=== PATIENT | male | born 1935 | race Caucasian/White ===

== ENCOUNTER → 2022-08-13 | Outpatient (CLI) | payer MEDICARE, SELFPAY ==
--- NOTE | 2022-08-12 22:33 | HP.PCM_ITS ---
History and Physical Date of Admission: 08/13/22 HISTORY OF PRESENT ILLNESS 86 year old man presents with a painful nonhealing ulcer superior helical rim right ear.? He first noticed it several months ago, and it has increased in size and has become more painful.? He denies any bleeding or drainage.? He denies any trauma.? He denies fever.? He has had skin cancers removed in the past on his left nasal tip. The area needed radiation therapy afterward.? He presents at this time for further evaluation and treatment. 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 Former smoker alcohol intake:? never substance use type:? does not use REVIEW OF SYMPTOMS General - Denies fever, fatigue, and weight loss. Eyes - Denies cataracts and glaucoma. ENT - Denies nasal congestion and sore throat. Endocrine - Denies excessive thirst and urination. Skin - Had a basal cell skin cancer excised from his left nasal tip several years ago and needed radiation therapy.? Has a painful enlarging nonhealing u lcer superior helical rim right ear. Musculoskeletal - Denies joint pain, joint stiffness, weakness of muscles and joints, back pain, and arthritis. Neuro - Denies headaches. Cardiovascular - Denies chest pain, fatigue, and shortness of breath with exertion. Psych - Denies anxiety and depression. Respiratory - Denies chronic cough and shortness of breath. ? Patient is a former smoker. Gastrointestinal - Denies nausea, vomiting, diarrhea, and constipation. Hematologic - Denies abnormal bruising and bleeding. Genitourinary - Denies hematuria and urinary frequency. PHYSICAL EXAMINATION General - Alert and Oriented. HEENT - PERRL. EOMI.? Throat is clear.? On the superior helical rim right ear is a large ulceration involving underlying cartilage.? Measures 2.2 x 1.5 cm.? Some tenderness to palpation.? No evidence of infection at this time.? No redness, no fluctuance, no purulent drainage.? On his left nasal alar rim is a notching from previous excision of a basal cell carcinoma.? Also had radiation therapy.? No other suspicious lesions noted. Neck - Supple and nontender.? No cervical adenopathy.? No suspicious lesions noted. Lungs - Clear to auscultation. Heart - Regular rate and rhythm. Abdomen - Soft and nondistended. Extremities - FROM. No axillary adenopathy.? Radial pulses are palpable.? No suspicious lesions noted. Neuro - CN II-XII grossly intact. Psych - Normal mood and affect. ASSESSMENT 1.? 2.2 cm painful nonhealing ulcer superior helical rim right ear, clinically squamous cell carcinoma. 2.? Personal history of skin cancer. 3.? History of radiation therapy. 4.? Former smoker. PLAN Patient has an enlarging painful nonhealing ulcer involving underlying cartilage superior helical rim right ear.? With that degree of erosion into the underlying cartilage, clinically it's a squamous cell carcinoma. First order of business is to establish a diagnosis, so I recommend operative intervention with an excision of this ulceration and send it to Pathology for analysis to rule out carcinoma.? I try to give Pathology a full thickness excision since it makes it easier to make the diagnosis of invasive carcinoma.? If carcinoma is present, as I suspect, then further excision will be done with a margin which will essentially partially amputate a little less than the top half of the ear. ? After healing has occurred, can discuss complex ear reconstruction if the patient is interested. It is a multi procedure commitment.? If he is interested later on, will also discuss with him that the notching in his left nasal alar rim can be addressed as well with complex nasal reconstruction which is also a multi procedure commitment as well. For monitoring, he will need TBSE every 6 months, and he will come to see me for these examinations. Patient was informed of the risks and complications of the procedure including alternatives to surgery.? These were discussed with the patient personally.? Patient voices understanding and wishes to proceed. Some of the risks and complications were included in a form from the [employer]. Potential risks and complications included but not inclusive of bleeding, infection, hematoma, bruising, swelling, prolonged need for drains, loss of sensation to skin, partial or complete loss of skin flap and/or nipple graft, wound breakdown, need for wound care, poor scarring, poor aesthetic outcome, intra operative cardiac or neurologic events, DVT, PE, and reaction to anesthesia. Surgery will be done under general anesthesia with a surgical observation overnight stay in the hospital. 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
--- NOTE | 2022-08-13 08:30 | EKG12_ITS ---
Test Reason : PREOP Blood Pressure : / mmHG Vent. Rate : 064 BPM Atrial Rate : 256 BPM P-R Int : 000 ms QRS Dur : 100 ms QT Int : 408 ms P-R-T Axes : 259 -33 -42 degrees QTc Int : 420 ms Atrial flutter Left axis deviation Septal infarct , age undetermined Abnormal ECG No previous ECGs available Confirmed by MICHELET GALLARDO, CALLI ([id number]), market editor JAIME HIGGINS ([id number]) on 08/17/2022 10:23:40 AM Referred By: Landry Medina Confirmed By:CALLI TAFOYA MD
[2022-08-13 09:15] VITALS: BP 140/62; PULSE 63; RESP 16; TEMP 36.3; O2SAT 97; BMI 21.6
[2022-08-13 09:52] LABS: Hematocrit 42.7 % (40-54); Mean Corp Hgb Conc 32.8 g/dL (32-36); Mean Corpuscular Hgb 34.9 pg (27.0-32.0); Mean Corpuscular Volume 106.5 fL (80-94); Mean Platelet Vol. 9.4 fl (6.2-12.0); Platelet Count 318 K/mm3 (150-450); RBC Distribution Width CV 13.4 % (11.6-14.6); RBC Distribution Width SD 52.9 fl (35.1-43.9); Red Blood Count 4.01 M/mm3 (4.6-6.2); White Blood Count 11.1 K/mm3 (4.4-11.0)
[2022-08-13 10:16] LABS: AST(SGOT) 20 U/L (15-37); Alanine Aminotransfer ALT/SGPT 18 U/L (16-61); Albumin, Serum 3.3 g/dL (3.2-5.0); Alkaline Phosphatase 155 U/L (45-117); Anion Gap 5 (5-15); BUN 13 mg/dL (7-18); BUN/Creat Ratio 14.2 RATIO (10-20); Bilirubin, Direct 0.19 mg/dL (0.00-0.30); Calcium,Total 9.5 mg/dL (8.5-10.1); Chloride 100 mmol/L (98-107); Creatinine, Serum 0.92 mg/dL (0.70-1.30); EST Glomerular Filtration Rate 83 mL/min (>60); Est Glom Filt Rate - Afr Amer 100 mL/min (>60); Estimated Creatinine Clearance 48.57 ml/min; Globulin 3.9 g/dL (2.2-4.2); Glucose 95 mg/dL (74-106); Potassium 4.6 mmol/L (3.5-5.1); Protein, Total 7.2 g/dL (6.4-8.2); Sodium Level 136 mmol/L (136-145); Thyroid Stim Hormone (TSH) 4.97 uIU/mL (0.358-3.74)
[2022-08-13 10:39] LABS: International Normalized Ratio 1.1; Prothrombin Time (Protime)PT. 14.5 SECONDS (11.7-14.9)
[2022-08-13 10:49] LABS: Partial Thromboplast Time 43.1 Seconds (24.1-36.2)
== END | disposition home or self-care (01) ==
LOC: AC 10:33 → PAT 09-09 16:53
PROVIDERS: Anesthesiology; PCP Family Medicine; Referring Provider Surgery; Visit Provider Surgery
DX: Z01.812 Encounter for preprocedural laboratory examination (principal); C44.222 Squamous cell carcinoma of skin of right ear and external auricular canal; Z53.9 Procedure and treatment not carried out, unspecified reason; Z92.3 Personal history of irradiation; Z79.82 Long term (current) use of aspirin; Z79.899 Other long term (current) drug therapy; Z87.891 Personal history of nicotine dependence
CPT/HCPCS: 80048; 80076; 84443; 85027; 85610; 85730; 93005; J7120; J2405

== ENCOUNTER → 2022-09-01 | Outpatient (CLI) | payer MEDICARE, SELFPAY ==
--- NOTE | 2022-09-01 08:06 | ECHOD_ITS ---
Reason For Study: PRE-OP Procedure This was a 2D Doppler, Color Flow transthoracic echocardiogram. Exam performed in department. Left Ventricle Normal LV size. Left ventricular systolic function is normal. The estimated ejection fraction is 65 %. No regional wall motion abnormalities noted. Right Ventricle Normal RV size. Normal systolic function. Atria Normal left atrium. Normal right atrium. Mitral Valve Normal mitral valve. Tricuspid Valve Normal tricuspid valve. Mild (1+) tricuspid valve insufficiency. Pulmonary artery systolic pressure is 39 mmHg. Aortic Valve Trisinus/trileaflet aortic valve. Mild focal aortic valve calcification. Pulmonic Valve Normal pulmonic valve. Great Vessels Normal aortic root. The pulmonary artery is normal size. Normal inferior vena cava. Pericardium/Pleural No pericardial effusion. MMode/2D Measurements & Calculations LVIDd: 4.3 cm IVSd: 1.1 cm LVOT diam: 2.0 cm LVIDs: 3.0 cm LVPWd: 1.1 cm LVOT area: 3.3 cm2 RVDd: 3.3 cm FS: 30.0 % Ao root diam: 3.0 cm LAV(MOD-bp): 56.5 ml LVAd ap4: 16.6 cm2 LAV(MOD-bp) Indexed: 33.4 ml/m2 LVLd ap4: 6.2 cm LAV(MOD-sp2): 59.0 ml EDV(MOD-sp4): 37.6 ml LAV(MOD-sp4): 53.4 ml EDV(sp4-el): 37.8 ml LVAs ap4: 10.2 cm2 LVLs ap4: 5.3 cm ESV(MOD-sp4): 17.4 ml ESV(sp4-el): 16.5 ml EF(MOD-sp4): 53.6 % EF(sp4-el): 56.4 % LVAd ap2: 17.0 cm2 SV(MOD-sp4): 20.2 ml SV(MOD-sp2): 23.6 ml LVLd ap2: 6.3 cm EDV(MOD-sp2): 39.1 ml EDV(sp2-el): 39.2 ml LVAs ap2: 9.9 cm2 LVLs ap2: 5.5 cm ESV(MOD-sp2): 15.6 ml ESV(sp2-el): 15.2 ml EF(MOD-sp2): 60.2 % SV(sp4-el): 21.3 ml LA dimension(2D): 3.9 cm LA A4 area: 20.0 cm2 RA A4 area: 17.5 cm2 Time Measurements MV dec time: 0.16 sec Doppler Measurements & Calculations MV E max adrian: 117.7 cm/sec Lat Peak E' Adrian: 8.8 cm/sec Med Peak E' Adrian: 7.8 cm/sec MV A max adrian: 60.5 cm/sec E/E' lat: 13.3 E/E' med: 15.1 MV E/A: 1.9 Ao V2 max: 139.1 cm/sec LV V1 max: 91.7 cm/sec MV dec slope: 816.0 cm/sec2 Ao max P.7 mmHg LV V1 max P.4 mmHg QUENTIN(V,D): 2.2 cm2 PA V2 max: 110.3 cm/sec TR max adrian: 289.6 cm/sec PA max PG (full): 1.9 mmHg TR max P.5 mmHg ECHO/Echo Complete Interpretation Summary Normal LV size. Left ventricular systolic function is normal. The estimated ejection fraction is 65 %. Pulmonary artery systolic pressure is 39 mmHg. Mild (1+) tricuspid valve insufficiency. Ordering Physician: Nixon Urias Referring Physician: More Salazar Performed By: Marcelina Raya RDCS
--- NOTE | 2022-09-01 17:37 | STRESSREP_ITS ---
Stress Test Report Pharmacologic myocardial perfusion stress test. 86-year-old man with a history of atrial fibrillation for preop evaluation Resting EKG demonstrates atrial fibrillation flutter with a rate of 73 bpm. Resting blood pressure is 122/70 mmHg. 0.4 mg of regadenoson was infused per usual protocol followed by rapid intravenous saline flush injection. Continuous EKG monitoring was performed. The maximum heart rate was 116 bpm which was 87% of max impacted heart rate the maximum workload was 1 metabolic equivalent. At rest there were no ST or T wave changes noted to suggest ischemia and at peak infusion nonspecific ST changes were noted which did not meet the criteria for ischemia. No clinical angina is noted. The final blood pressure was 128/70 mmHg. Myocardial perfusion protocol. 11.6 mCi of technetium 99m sestamibi was injected at rest. 0.4 mg of regadenoson was infused per usual protocol. At peak infusion 33.7 mCi of techn etium 99m sestamibi was injected stress images were obtained stress and rest images were reconstructed and compared in the short axis vertical long and horizontal long axis. Gated images were also obtained. Perfusion SPECT analysis: Review of the stress images demonstrate normal uptake of tracer noted in all areas of the myocardium. The resting images similar demonstrated normal uptake of tracer noted in all areas of the myocardium. No areas of reversibility are noted to suggest ischemia and no previous infarct is noted. Gated SPECT analysis: The gated ejection fraction is 75% plus. Conclusion: Normal pharmacologic myocardial perfusion stress test. Preserved ejection fraction. Atrial fibrillation/flutter noted
== END | disposition home or self-care (01) ==
PROVIDERS: PCP Family Medicine; Referring Provider Internal Medicine Cardiovascular Disease; Visit Provider Internal Medicine Cardiovascular Disease
DX: Z01.810 Encounter for preprocedural cardiovascular examination (principal); I25.10 Atherosclerotic heart disease of native coronary artery without angina pectoris; Z95.1 Presence of aortocoronary bypass graft
CPT/HCPCS: 78452; 93017; 93306; A9500; A4216; J2785

== ENCOUNTER 2022-09-20 13:35 | Observation (INO) | payer MEDICARE, SELFPAY ==
[2022-09-20] VITALS (11 sets, daily range): BP systolic 110–159; BP diastolic 50–79; PULSE 60–76; RESP 16–18; TEMP 35.8–36.7; O2SAT 93–100; BMI 21.6; BMI 21.5
--- NOTE | 2022-09-20 | LES_PTH ---
PATIENT: GABRIEL LUCAS LOC: MS3 U#:[id number] AGE/SX: 86/M ROOM: AL314 RE09/20/[address]: Dr. Landry Medina MD : 1935 BED: 1 DIS: 09/22/2022 SPEC #: [id number] RECD: 09/20/22 10:48 STATUS: PEDRO ROCKY #: [id number] JUANI: 09/20/22 00:[address]: Landry Medina DEPT: SURGICAL PATHOLOGY RECD BY: Varsha Rockwell ENTERED: 09/20/22 11:35 SP TYPE: Lesion OTHR DR: Dr. More Salazar, DO Tissues: A - Skin of external ear, NOS B - Skin of external ear, NOS Procedures: Frozen Section (charge) Surgery Specimen Level IV HEADER OPERATION: Radical excision 2.2 cm painful ulcerated invasive squamous cell carcinoma PRE-OP DIAGNOSIS: 2.2 cm painful nonhealing ulcer superior helical rim; history of skin cancer TISSUE SUBMITTED: A ? Right ear superior helical rim lesion, frozen section, B ? Squamous cell carcinoma, right ear superior helical rim, suture at 12 o?clock FROZEN SECTION DIAGNOSIS A. Right superior ear lesion, biopsy: Invasive squamous cell carcinoma. Squamous cell carcinoma in situ. AM: 09/20/2022 MICROSCOPIC DIAGNOSIS A. Right ear superior helical rim lesion, excision: Invasive well to moderately differentiated squamous cell carcinoma. See comment. B. Right ear superior helical rim lesion, re-excision: Invasive well to moderately differentiated squamous cell carcinoma, completely excised. Basal cell carcinoma focally extending to the 6 o?clock margin of excision. Extensive solar elastosis. Cartilage with no significant pathologic change. See comment. AM:apple 09/21/2022 COMMENT A & B. Immunohistochemistry ([id number]) supports the above diagnosis. B. Yellow ink does not represent a true margin and represents recent (part A) biopsy region. MICROSCOPIC DESCRIPTION Slides are reviewed. GROSS DESCRIPTION A - Received fresh for frozen section consultation labeled with the patient's name is a specimen designated right ear lesion. The specimen consists of a single irregular fragment of pink-red soft tissue measuring 3.0 x 0.5 x 0.3 cm and containing small fragments of unremarkable skin. The specimen is submitted in its entirety for frozen section consultation in one block. / AM:apple 09/20/2022 B - Received in fixative is one container labeled with the patient's name and designated squamous cell carcinoma right ear. The specimen consists of a circular fragment of pink-galvez skin with attached red-galvez soft tissue. The specimen measures 4.5 cm in diameter and 0.7 cm in thickness. A suture is present along one edge signifying the 12 o?clock position. Attached to the underside of the soft tissue at the 3 o?clock and 10-12 o?clock position are fragments of unremarkable cartilage. The specimen is differentially inked as follows: 12 o?clock ? black, 3 o?clock ? green, 6 o?clock ? blue, 9 o'clock ? red. The inner rim is inked in yellow ink. The specimen is radially sectioned and totally submitted in four cassettes. / AM:apple 09/20/2022 TC:0 CPT: 38513 x2, 66708
--- NOTE | 2022-09-20 | IMM_PTH ---
PATIENT: GABRIEL LUCAS LOC: MS3 U#:[id number] AGE/SX: 86/M ROOM: [facility]314 RE09/20/[address]: Dr. Landry Medina MD : 1935 BED: 1 DIS: 09/22/2022 SPEC #: [id number] RECD: 09/21/22 11:06 STATUS: PEDRO REQ #: [id number] JUANI: 09/20/22 00:[address]: Landry Medina DEPT: IMMUNOHISTOCHEMISTRY RECD BY: Varsha Rockwell ENTERED: 09/21/22 11:08 SP TYPE: IMMUNO OTHR DR: DO Dr. More Arango DO Tissues: A - Skin of external ear, NOS B - Skin of external ear, NOS Procedures: BCL-2 (add) CK5-6 (add) P40 (add) CD10 (initial) PHYSICIAN & INSTITUTION [place] [id number] SPECIMEN INFORMATION: Tissue Source: A - Right ear superior helical rim lesion, B - Right ear superior helical rim lesion Clinical Info: Painful nonhealing ulcer superior helical rim; history of skin cancer Specimen Number: [id number] A & B3 CPT code: 45264 x2, 87984 x6 METHODOLOGY: Deparaffinized sections of prefer/formalin-fixed tissue or PAP/DQ stained slides are incubated with monoclonal/polyclonal antibodies/oligonucleotide probes. Localization is made via biotin free immunoperoxidase method. Appropriate controls are performed and reacted as expected. Results on target cell population are indicated in the following table: RESULTS: ANTIBODY / CLONE RESULT Block A P40 (BC28) positive CD10 (56C6) negative BCL-2 (bcl-2/100/D5) negative CK5-6 (D5 & 1684) positive Block B3 P40 (BC28) positive CD10 (56C6) positive BCL-2 (bcl-2/100/D5) positive CK5-6 (D5 & 1684) positive These tests were developed and their performance characteristics determined by [facility]. They may not have been cleared or approved by the U.S. Food and Drug Administration. The FDA has determined that such clearance or approval is not necessary. The above immunohistochemical/dualISH markers are ordered and reviewed by the Pathologist. INTERPRETATION: A. Right ear superior helical rim lesion, excision: Invasive squamous cell carcinoma. B. Right ear superior helical rim lesion, re-excision: Invasive squamous cell carcinoma. Basal cell carcinoma. AM:apple 09/22/2022
[2022-09-20] MEDS: Lactated Ringers 1,000 ML 15 ML IV ×2 (08:42→13:43)
[2022-09-20] MEDS: BACITRACIN/POLYMYXIN B 15 GM Tube 1 APPLIC (09:43)
--- NOTE | 2022-09-20 09:52 | HP.PCM_ITS ---
History and Physical Date of Admission: 09/20/22 HISTORY OF PRESENT ILLNESS 86 year old man presents with a painful nonhealing ulcer superior helical rim right ear.? He first noticed it several months ago, and it has increased in size and has become more painful.? He denies any bleeding or drainage.? He denies any trauma.? He denies fever.? He has had skin cancers removed in the past on his left nasal tip. The area needed radiation therapy afterward.? He presents at this time for further evaluation and treatment. 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 Former smoker alcohol intake:? never substance use type:? does not use REVIEW OF SYMPTOMS General - Denies fever, fatigue, and weight loss. Eyes - Denies cataracts and glaucoma. ENT - Denies nasal congestion and sore throat. Endocrine - Denies excessive thirst and urination. Skin - Had a basal cell skin cancer excised from his left nasal tip several years ago and needed radiation therapy.? Has a painful enlarging nonhealing ulcer superior helical rim right ear. Musculoskeletal - Denies joint pain, joint stiffness, weakness of muscles and joints, back pain, and arthritis. Neuro - Denies headaches. Cardiovascular - Denies chest pain, fatigue, and shortness of breath with exertion. Psych - Denies anxiety and depression. Respiratory - Denies chronic cough and shortness of breath. ? Patient is a former smoker. Gastrointestinal - Denies nausea, vomiting, diarrhea, and constipation. Hematologic - Denies abnormal bruising and bleeding. Genitourinary - Denies hematuria and urinary frequency. PHYSICAL EXAMINATION General - Alert and Oriented. HEENT - PERRL. EOMI.? Throat is clear.? On the superior helical rim right ear is a large ulceration involving underlying cartilage.? Measures 2.2 x 1.5 cm.? Some tenderness to palpation.? No evidence of infection at this time.? No redness, no fluctuance, no purulent drainage.? On his left nasal alar rim is a notching from previous excision of a basal cell carcinoma.? Also had radiation therapy.? No other suspicious lesions noted. Neck - Supple and nontender.? No cervical adenopathy.? No suspicious lesions noted. Lungs - Clear to auscultation. Heart - Regular rate and rhythm. Abdomen - Soft and nondistended. Extremities - FROM. No axillary adenopathy.? Radial pulses are palpable.? No suspicious lesions noted. Neuro - CN II-XII grossly intact. Psych - Normal mood and affect. ASSESSMENT? 1.? 2.2 cm painful nonhealing ulcer superior helical rim right ear, clinically squamous cell carcinoma. 2.? Personal history of skin cancer. 3.? History of radiation therapy. 4.? Former smoker. PLAN Patient has an enlarging painful nonhealing ulcer involving underlying cartilage superior helical rim right ear.? With that degree of erosion into the underlying cartilage, clinically it's a squamous cell carcinoma. First order of business is to establish a diagnosis, so I recommend operative intervention with an excision of this ulceration and send it to Pathology for analysis to rule out carcinoma.? I try to give Pathology a full thickness excision since it makes it easier to make the diagnosis of invasive carcinoma.? If carcinoma is present, as I suspect, then further excision will be done with a margin which will essentially partially amputate a little less than the top half of the ear. ? After healing has occurred, can discuss complex ear reconstruction if the patient is interested. It is a multi procedure commitment.? If he is interested later on, will also discuss with him that the notching in his left nasal alar rim can be addressed as well with complex nasal reconstruction which is also a multi procedure commitment as well. For monitoring, he will need TBSE every 6 months, and he will come to see me for these examinations. Patient was informed of the risks and complications of the procedure including alternatives to surgery.? These were discussed with the patient personally.? Patient voices understanding and wishes to proceed. Some of the risks and complications were included in a form from the [employer]. Potential risks and complications included but not inclusive of bleeding, infection, hematoma, bruising, swelling, prolonged need for drains, loss of sensation to skin, partial or complete loss of skin flap and/or nipple graft, wound breakdown, need for wound care, poor scarring, poor aesthetic outcome, intra operative cardiac or neurologic events, DVT, PE, and reaction to anesthesia. Surgery will be done under general anesthesia with a surgical observation overnight stay in the hospital.
[2022-09-20] MEDS: Clindamycin 900 MG/50 ML BAG 75 MG IV (10:15)
[2022-09-20] MEDS: Lidocaine 1% /Epi 1:100 (20ml) 20 ML Vial (10:40)
--- NOTE | 2022-09-20 12:21 | OP.PCM_ITS ---
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 2.2 cm painful nonhealing ulcer superior helical rim right ear, clinically squamous cell carcinoma. 2. Personal history of skin cancer. 3. History of radiation therapy. 4. Former smoker. Post-Operative Diagnosis: 1. 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 2. Personal history of skin cancer. 3. History of radiation therapy. 4. Former smoker. 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 Description of Surgical Findings:: 86 year old man presents with a painful nonhealing ulcer superior helical rim right ear.? He first noticed it several months ago, and it has increased in size and has become more painful.? The ulceration had extended onto the posterior ear. He denies any bleeding or drainage.? He denies any trauma.? He denies fever.? He has had skin cancers removed in the past on his left nasal tip. The area needed radiation therapy afterward.? Patient was informed of the risks and complications of the procedure including alternatives to surgery. These were discussed with the patient personally. Patient voices understanding and wishes to proceed. Some of the risks and complications were included in a form from the [employer]. Potential risks and complications included but not inclusive of bleeding, infection, seroma, hematoma, bruising, swelling, loss of sensation to skin, partial or complete loss of skin flap, wound breakdown, need for wound care, poor scarring, poor aesthetic outcome, intra operative cardiac or neurologic events, DVT, PE, and reaction to anesthesia. Frozen section ulcerated lesion superior helical rim right ear involving underlying cartilage and with extension onto posterior ear - invasive squamous cell carcinoma. Surgeon: Landry Medina MD property investor: Giorgi Fields RNFA Type of Anesthesia: General Anesthesiologist: Andre Rehman MD and Carolina Olmstead CRNA Specimen's removed: 1. Ulcerated lesion superior helical rim right ear involving underlying cartilage and with extension onto posterior ear to Pathology as a frozen section. 2. 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 Drains: None. Estimated Blood Loss (mL): 25. Description of Procedure: Patient was taken to OR in supine position and was placed under general anesthesia. The right ear, including preauricular and postauricular, and right neck areas were prepped and draped in the usual fashion. SCD's were placed for DVT prophylaxis. Perioperative antibiotics were given intravenously. Using xylocaine with epinephrine, the right ear was infiltrated with a regional auric ular block. After waiting 5 minutes for the anesthetic to take effect, I excised a portion of the ulcerated lesion on the anterior surface of the ear and sent it to Pathology as a frozen section for analysis to rule out carcinoma. Frozen section was an invasive squamous cell carcinoma. The carcinoma involved underlying cartilage. Therefore radical excision of this ulcerated invasive squamous cell carcinoma with a 1 cm margin in all directions. A large area of the superoposterior ear was ulcerated as well. The radical excision included a lot of cartilage as well. The excision of cartilage was done to make it easier to close a portion of the right ear wound defect, mostly the superior helical rim portion. A suture was marked at the 12 oclock position for pathology orientation. The lesion was sent to pathology to rule out carcinoma at the margins. 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 A complex closure was then done on the superior helical rim portion of the wound defect which was made easier by excision of additional cartilage. Closure was obtained with 5-0 Monocryl interrupted and vertical mattress interrupted sutures. The partial complex closure measured 3 cm. Some of the anterior ear skin was excised with the squamous cell carcinoma as well. Closure was done with 5-0 Monocryl interrupted and vertical mattress interrupted sutures. This left a posterior ear defect. Closing the anterior ear to the postauricular area would have been too much tension on the suture line which would increase the risk of wound healing problems postoperatively. So I designed a superior postauricular skin flap to close the posterior ear defect which measured 4 x 1 cm. Markings were made for the superior postauricular skin flap down to the scalp hair line. The size of the postauricular skin flap was 4 x 2 cm. The postauricular skin flap was elevated down to the level of fascia. It was easily advanced into the posterior ear defect. The flap wound was approximated with the posterior ear defect with 5-0 Monocryl interrupted sutures for the deep dermis and subcutaneous tissue. The skin was approximated with 5-0 Prolene simple interrupted and vertical mattress interrupted sutures. skin The size of the wound and the size of the flap needed to close the defect was 12 cm2. Antibiotic ointment was applied to the suture lines followed by 4x4 gauze and Kerlix gauze for a compression dressing and secured with an megan wrap. Patient tolerated the procedure well and was sent to PACU in satisfactory condition. Patient will be sent upstairs for continued postop care. He will keep his head elevated during the initial postoperative period. He can be discharged when medically stable. He will followup in the office in a week for a wound check and for discussion of the Pathology report. Grafts/Implants Used: None. Procedure Start Time: 10:39 Procedure Stop Time: 12:43 Complications None. Admit VTE Documentation VTE Present on Admission: No VTE Mechan Device Prophylaxis: SCD's VTE Pharm Prophylaxis ordered?: Yes Addendum Addendum: Surgery Charges CPT - 98016 ICD-10 - C44.222, L98.499, H92.01, Z85.828, Z92.3, Z87.891 27098 C44.222, L98.499, H92.01, Z85.828, Z92.3, Z87.891 84452 C44.222, L98.499, H92.01, Z85.828, Z92.3, Z87.891
[2022-09-20] MEDS: Clindamycin in 0.9% Sod Chlor 600 MG/50 ML BAG 100 MG IV ×2 (15:42→21:07)
[2022-09-20] MEDS: Lactated Ringers 1,000 ML 60 ML IV (16:50)
[2022-09-20] MEDS: Juven (unflavored) Packet 1 PACKET PO (17:04)
--- NOTE | 2022-09-20 18:00 | PCM.PN.HOSP ---
Reason for Visit Reason for Visit: Nonhealing right ear ulcer Subjective Subjective Mr. Mejia is an 86-year-old white male who was admitted by Dr. Medina from plastic surgery after surgical intervention for what sounds like a squamous cell carcinoma. He had a painful nonhealing ulcer of the superior helical rim of the right ear that was first noted several months ago. It had increased in size and had become more painful. He evidently has had previous skin cancers removed and did require radiation for this. He was taken to the OR this morning for a 2.2 painful nonhealing ulcer of the superior helical right rim was removed via surgical excision with complete closure and a right superior postauricular advancement skin flap was performed. He has a past medical history of atrial flutter, CAD status post CABG, hypertension, hyperlipidemia, hypothyroidism, and tobacco abuse. We have been consulted postoperatively for medical management. States he is currently feeling well. Has some pain above his eye but this has resolved since they rewrapped his head and loosen the bandage and gave him some Tylenol. Has no complaints at this time Objective Data Objective Data Vital Signs: Vital Signs Temp Pulse Resp BP Pulse Ox O2 Del Method O2 Flow Rate 98.0 F 63 16 113/51 L 96 Room Air 1 09/20/22 16:31 09/20/22 16:31 09/20/22 16:31 09/20/22 16:31 09/20/22 16:31 09/20/22 16:31 09/20/22 14:28 Oxygen Flow Rate (L/min) 1 Oxygen Delivery Method Room Air Weight: 60.9 kg Body Mass Index (BMI) 21.5 Intake & Output: Intake and Output for Last 24 Hours 09/18/22 09/19/22 09/20/22 23:59 23:59 23:59 Intake Total 1100 / 1100 Output Total 0 / 0 Balance 1100 / 1100 Physical Exam Const alert, oriented x3, no apparent distress and average body habitus Constitutional Narrative: Elderly, white male, sitting up in bed, appears comfortable nontoxic HEENT HEENT Narrative: Postoperative dressing in place with Bryn bandage holding everything together Resp normal respiratory effort, no retractions, no use of accessory muscles and clear to auscultation bilaterally Auscultation: Negative for rales, rhonchi or wheezes Cardio regular rate, regular rhythm, S1 normal heart sound, S2 normal heart sound, no murmurs, no rub and no gallops GI normal to inspection, nondistended, normoactive bowel sounds, soft to palpation and non-tender Extremity no clubbing, cyanosis or edema Extremity Narrative: Pedal pulse are 2+ Neuro oriented x3, moves all extremities and no focal motor deficits Speech: speech normal Psych affect normal Psych Narrative: Extremely pleasant Assessment & Plan Assessment/Plan (1) Lesion of right external ear: PLAN: Plan Nonhealing squamous cell carcinoma of the left ear -Postop day 0 2.2 painful nonhealing ulcer of the superior helical right rim was removed via surgical excision with complete closure and a right superior postauricular advancement skin flap -Management per primary service -Anticipate discharge soon as long as medically stable CAD/HTN/HPL -Was cleared preoperatively by cardiology -Preop stress test was unremarkable -Preop echocardiogram showed an EF of 65% with pulmonary systolic pressure of 39 mmHg and 1+ tricuspid valve insufficiency with normal LV function -Continue amlodipine 5 mg daily -Continue metoprolol 25 mg p.o. twice daily -Continue aspirin 81 mg daily -Patient is not on a statin baseline--> we will leave to cardiology follow-up as outpatient Paroxysmal atrial flutter -Cardiology following -Probable initiation of anticoagulation following surgical intervention -We will have patient follow-up after discharge with cardiology to discuss further -Continue metoprolol -Heart rates are controlled with current rate of 63 Hypothyroidism -Continue home levothyroxine History of tobacco abuse -As needed nebulizers -No current issues - patient on room air DVT prophylaxis -Per primary service CODE STATUS -Full code Charges/Coding Visit Charges Inpatient E&M: 87409 Subs Hosp L2
[2022-09-20] MEDS: Docusate Sodium 100 MG Capsule PO (21:07)
[2022-09-20] MEDS: Metoprolol Tartrate 25 MG Tablet PO (21:09)
[2022-09-21 03:00] VITALS: BP 118/56; PULSE 74; RESP 16; TEMP 36.6; O2SAT 92; BMI 21.6
[2022-09-21] MEDS: Lactated Ringers 1,000 ML 60 ML IV (05:13)
[2022-09-21] MEDS: Levothyroxine 50 MCG Tablet PO (05:14)
[2022-09-21] MEDS: Clindamycin in 0.9% Sod Chlor 600 MG/50 ML BAG 100 MG IV ×3 (05:14→21:15)
[2022-09-21 05:17] LABS: Hematocrit 34.6 % (40-54); Hemoglobin 11.7 g/dL (13.0-16.5); Mean Corp Hgb Conc 33.8 g/dL (32-36); Mean Corpuscular Hgb 34.6 pg (27.0-32.0); Mean Corpuscular Volume 102.4 fL (80-94); Mean Platelet Vol. 10.1 fl (6.2-12.0); Platelet Count 239 K/mm3 (150-450); RBC Distribution Width SD 56.4 fl (35.1-43.9); Red Blood Count 3.38 M/mm3 (4.6-6.2); White Blood Count 10.6 K/mm3 (4.4-11.0)
[2022-09-21 05:30] VITALS: BMI 21.6
[2022-09-21 06:13] LABS: Anion Gap 4 (5-15); BUN 24 mg/dL (7-18); BUN/Creat Ratio 21.4 RATIO (10-20); Calcium,Total 9.1 mg/dL (8.5-10.1); Chloride 100 mmol/L (98-107); Creatinine, Serum 1.12 mg/dL (0.70-1.30); EST Glomerular Filtration Rate 66 mL/min (>60); Est Glom Filt Rate - Afr Amer 80 mL/min (>60); Estimated Creatinine Clearance 40.03 ml/min; Glucose 166 mg/dL (74-106); Potassium 5.3 mmol/L (3.5-5.1); Sodium Level 133 mmol/L (136-145)
--- NOTE | 2022-09-21 08:42 | WOUNDNOTE ---
wound photo: right ear
[2022-09-21 08:47] VITALS: PULSE 70
[2022-09-21] MEDS: Metoprolol Tartrate 25 MG Tablet PO ×2 (08:47→21:15)
[2022-09-21] MEDS: amLODIPine 5 MG Tablet PO (08:47)
[2022-09-21] MEDS: Docusate Sodium 100 MG Capsule PO ×2 (08:47→21:14)
[2022-09-21] MEDS: Enoxaparin 40 MG/0.4 ML Syringe SC (08:47)
[2022-09-21] MEDS: Juven (unflavored) Packet 1 PACKET PO ×2 (08:47→16:45)
[2022-09-21 09:00] VITALS: BP 119/63; PULSE 68; RESP 18; TEMP 36.4; O2SAT 92
--- NOTE | 2022-09-21 09:39 | CASEMGMT ---
Discharge Planning HH list created and sent to RN CM. Erika Stroud, Discharge Planning Asst.
[2022-09-21 09:46] LABS: Anion Gap 4 (5-15); BUN 25 mg/dL (7-18); BUN/Creat Ratio 23.8 RATIO (10-20); Calcium,Total 9.1 mg/dL (8.5-10.1); Chloride 98 mmol/L (98-107); Creatinine, Serum 1.05 mg/dL (0.70-1.30); EST Glomerular Filtration Rate 71 mL/min (>60); Est Glom Filt Rate - Afr Amer 86 mL/min (>60); Estimated Creatinine Clearance 42.69 ml/min; Glucose 122 mg/dL (74-106); Potassium 5.1 mmol/L (3.5-5.1); Sodium Level 132 mmol/L (136-145)
--- NOTE | 2022-09-21 09:50 | CASEMGMT ---
Addendum entered by Hattie Dela Cruz 09/21/22 15:31: YULIANA BLAKE into pt room, pt is aware that [facility] has accepted pt. Pt physical address is [address] [place] [address]. YULIANA BLAKE explained RAUSCH form, patient voiced understanding. Pt signed form and filed in chart. Pt provided with a copy of signed RAUSCH form. Pt nurse came into room and made pt aware that he will be staying yet tonight at the hospital. Patient had no further questions or concerns at this time. DC broker assistant to update [facility] on change in dc date. Original Note: Spoke with LOUISE Beck who would like pt to have [facility] for monitoring of wound and dressing changes 1-2x/wk. YULIANA BLAKE into pt room, pt female friend present at bedside and pt agreeable to conversation regarding dc planning. Patient was provided a list of [facility] providers including quality and resource use data and consistent with the patient?s preferred geographic region, medical needs, and insurance network were provided from the [facility]. Pt has chosen 1. Amy 2. [facility]. Requested dc community development planner send referrals. Pt states he is normally independent at home. Lives in a mobile home that has been shelled in. Pt states he does not use AD although noted FWW in the room. Pt denies need for FWW at home and states he can walk and always have something to hold onto. Pt cooks on his own. Pt denies any further needs at home but is agreeable to [facility].
--- NOTE | 2022-09-21 10:42 | CASEMGMT ---
Discharge Planning HH referral sent via [facility] to [facility] for SN and SW. Erika Stroud, Discharge Planning Asst.
[2022-09-21] MEDS: Tamsulosin HCl 0.4 MG Capsule PO (11:43)
--- NOTE | 2022-09-21 13:09 | PCM.PN.HOSP ---
Reason for Visit Reason for Visit: Surgical resection of skin cancer Subjective Subjective Patient states he is feeling well. Did have urinary retention and required straight cath through the night. I suspect this is related to intraoperative anesthesia. If patient urinates today he should be able to go home later. He is not having any complaints. Objective Data Objective Data Vital Signs: Vital Signs Temp Pulse Resp BP Pulse Ox O2 Del Method O2 Flow Rate 97.6 F L 68 18 119/63 92 Room Air 1 09/21/22 09:00 09/21/22 09:00 09/21/22 09:00 09/21/22 09:00 09/21/22 09:00 09/21/22 09:00 09/20/22 14:28 Oxygen Flow Rate (L/min) 1 Oxygen Delivery Method Room Air Weight: 60.9 kg Body Mass Index (BMI) 21.5 Intake & Output: Intake and Output for Last 24 Hours 09/19/22 09/20/22 09/21/22 23:59 23:59 23:59 Intake Total 1544.25 / 1544.25 1380 / 1380 Output Total 0 / 0 600 / 600 Balance 1544.25 / 1544.25 780 / 780 Lab / Micro Data Result Diagrams: 09/21/22 04:42 09/21/22 09:20 Labs: Laboratory Results - last 24 hr 09/21/22 04:42: WBC 10.6, RBC 3.38 L, Hgb 11.7 L, Hct 34.6 L, MCV 102.4 H, MCH 34.6 H, MCHC 33.8, RDW Std Deviation 56.4 H, RDW Coeff of David 15.0 H, Plt Count 239, MPV 10.1 09/21/22 04:42: Sodium 133 L, Potassium 5.3 H, Chloride 100, Carbon Dioxide 29.0, Anion Gap 4 L, BUN 24 H, Creatinine 1.12, Estim Creat Clear Calc 40.03, Est GFR (MDRD) Af Amer 80, Est GFR (MDRD) Non-Af 66, BUN/Creatinine Ratio 21.4 H, Glucose 166 H, Calcium 9.1 09/21/22 09:20: Sodium 132 L, Potassium 5.1, Chloride 98, Carbon Dioxide 30.0, Anion Gap 4 L, BUN 25 H, Creatinine 1.05, Estim Creat Clear Calc 42.69, Est GFR (MDRD) Af Amer 86, Est GFR (MDRD) Non-Af 71, BUN/Creatinine Ratio 23.8 H, Glucose 122 H, Calcium 9.1 Physical Exam Const alert, oriented x3, no apparent distress and average body habitus Constitutional Narrative: Elderly, white male, sitting up in bed, appears comfortable nontoxic, at bedside HEENT moist oral mucous membranes HEENT Narrative: Bandage has been removed and right ear with very small bandage on at this point, no drainage and bandages clean dry and intact Resp normal respiratory effort, no retractions, no use of accessory muscles and clear to auscultation bilaterally Auscultation: Negative for rales, rhonchi or wheezes Cardio regular rate, regular rhythm, S1 normal heart sound, S2 normal heart sound, no murmurs, no rub, no gallops and no clicks GI normal to inspection, nondistended, normoactive bowel sounds, soft to palpation and non-tender Extremity no clubbing, cyanosis or edema Extremity Narrative: Pedal pulse are 2+ Neuro oriented x3, moves all extremities and no focal motor deficits Speech: speech normal Psych affect normal Psych Narrative: Extremely pleasant Assessment & Plan Assessment/Plan (1) Lesion of right external ear: PLAN: Plan Nonhealing squamous cell carcinoma of the left ear -Postop day 1 2.2 painful nonhealing ulcer of the superior helical right rim was removed via surgical excision with complete closure and a right superior postauricular advancement skin flap -Management per primary service -Anticipate discharge soon as long as medically stable Urinary retention -Likely related to postop and intraoperative medications -Straight cath last night -Start Flomax and would discharged on 7 days of Flomax -If patient is able to urinate independently today would be comfortable with discharge home later CAD/HTN/HPL -Was cleared preoperatively by cardiology -Preop stress test was unremarkable -Preop echocardiogram showed an EF of 65% with pulmonary systolic pressure of 39 mmHg and 1+ tricuspid valve insufficiency with normal LV function -Continue amlodipine 5 mg daily -Continue metoprolol 25 mg p.o. twice daily -Continue aspirin 81 mg daily -Patient is not on a statin baseline--> we will leave to cardiology follow-up as outpatient Paroxysmal atrial flutter -Cardiology following -Probable initiation of anticoagulation following surgical intervention -We will have patient follow-up after discharge with cardiology to discuss further -Continue metoprolol -Heart rates are controlled with current rate of 63 Hypothyroidism -Continue home levothyroxine History of tobacco abuse -As needed nebulizers -No current issues - patient on room air DVT prophylaxis -Per primary service CODE STATUS -Full code Disposition -If patient is able to urinate independently would plan on discharge later today. Would recommend discharge on Flomax x7 days to avoid issues with urinary retention in the immediate postoperative period. Discussed with surgical CONTINUOUS DRIER OPERATOR. Charges/Coding Visit Charges Inpatient E&M: 38807 Subs Hosp L2
--- NOTE | 2022-09-21 14:37 | PCM.PN.SRG ---
Subjective Subjective Postop #1 Patient is sitting up in bed. He states he is having minimal pain. His hearing aid batteries have and he is having difficulty hearing. Objective Data Objective Data Vital Signs: Vital Signs Temp Pulse Resp BP Pulse Ox O2 Del Method O2 Flow Rate 97.9 F 70 16 118/56 L 92 Room Air 1 09/21/22 03:00 09/21/22 08:47 09/21/22 03:00 09/21/22 03:00 09/21/22 03:00 09/21/22 03:00 09/20/22 14:28 Oxygen Flow Rate (L/min) 1 Oxygen Delivery Method Room Air Weight: 134 lb 4.184 oz Body Mass Index (BMI) 21.5 Intake & Output: Intake and Output for Last 24 Hours 09/19/22 09/20/22 09/21/22 23:59 23:59 23:59 Intake Total 1544.25 / 1544.25 960 / 960 Output Total 0 / 0 600 / 600 Balance 1544.25 / 1544.25 360 / 360 Lab / Micro Data Result Diagrams: 09/21/22 04:42 09/21/22 09:20 Labs: Laboratory Results - last 24 hr 09/21/22 04:42: WBC 10.6, RBC 3.38 L, Hgb 11.7 L, Hct 34.6 L, MCV 102.4 H, MCH 34.6 H, MCHC 33.8, RDW Std Deviation 56.4 H, RDW Coeff of David 15.0 H, Plt Count 239, MPV 10.1 09/21/22 04:42: Sodium 133 L, Potassium 5.3 H, Chloride 100, Carbon Dioxide 29.0, Anion Gap 4 L, BUN 24 H, Creatinine 1.12, Estim Creat Clear Calc 40.03, Est GFR (MDRD) Af Amer 80, Est GFR (MDRD) Non-Af 66, BUN/Creatinine Ratio 21.4 H, Glucose 166 H, Calcium 9.1 Physical Exam Const alert and oriented x3 General Appearance: cooperative HEENT normocephalic HEENT Narrative: Very hard of hearing and his hearing aids batteries have lost their charge. Eyes General Eye: normal appearance of both eyes Resp normal respiratory effort Effort and Inspection: able to speak in complete sentences Cardio regular rate Extremity normal capillary refill Skin Skin Narrative: Right ear incision and sutures are dry and intact. There is a small amount of oozing from the medial portion of his incision. The posterior skin flap looks well approximated with no signs of hematoma. His operative dressing fell off, placed antibiotic ointment on the suture line and covered with dry gauze. 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 Operative dressing fell off of right ear. Incision and flap are dry and intact. No signs of hematoma. Place antibiotic ointment on incision line and cover with dry gauze. Continue Clindamycin. Instructed to keep head elevated. He does not have help at home. Having home health come in to do his dressing change 1-2 times a week would be ideal, along with social service consult to evaluate needs. Throughout the night he couldn't void, he had to be straight cathed. He has since voided a small amount. He was started on Tamsulosin today. He has concerns about getting home and not being able to void. Discussed his concerns with Dr. Medina and with the fact that he has no one at home to assist him, we will keep him tonight, which will allow us to monitor his voiding and get home health approved. The plan will be to discharge him home tomorrow. He will follow up in the office next week.
[2022-09-21 14:43] VITALS: BP 113/99; PULSE 67; RESP 18; TEMP 36.6; O2SAT 95
[2022-09-21 14:45] VITALS: BMI 21.6
[2022-09-21 21:00] VITALS: BP 110/66; PULSE 66; RESP 18; TEMP 36.6; O2SAT 95
[2022-09-21 21:15] VITALS: BP 110/66; PULSE 66
[2022-09-22 05:00] VITALS: BP 116/81; PULSE 58; RESP 18; TEMP 36.6; O2SAT 93
[2022-09-22] MEDS: Levothyroxine 50 MCG Tablet PO (05:07)
[2022-09-22] MEDS: Clindamycin in 0.9% Sod Chlor 600 MG/50 ML BAG 100 MG IV ×2 (05:07→13:40)
[2022-09-22 07:09] LABS: Anion Gap 3 (5-15); BUN 34 mg/dL (7-18); Calcium,Total 8.9 mg/dL (8.5-10.1); Chloride 100 mmol/L (98-107); EST Glomerular Filtration Rate 75 mL/min (>60); Est Glom Filt Rate - Afr Amer 91 mL/min (>60); Estimated Creatinine Clearance 44.83 ml/min; Glucose 97 mg/dL (74-106); Sodium Level 132 mmol/L (136-145)
[2022-09-22 07:48] VITALS: PULSE 58
[2022-09-22] MEDS: Docusate Sodium 100 MG Capsule PO (07:48)
[2022-09-22] MEDS: Enoxaparin 40 MG/0.4 ML Syringe SC (07:48)
[2022-09-22] MEDS: Juven (unflavored) Packet 1 PACKET PO (07:48)
[2022-09-22] MEDS: amLODIPine 5 MG Tablet PO (07:48)
[2022-09-22 09:40] VITALS: BP 120/49; PULSE 56; RESP 18; TEMP 36.3; O2SAT 97
--- NOTE | 2022-09-22 11:39 | CASEMGMT ---
Social Work SW spoke w/pt, let him know we do not have LW or POA on file. Pt states he does have the documents, granddaughter Uzma Rosales is his POA. SW asked him to bring the documents in the future as able. Pt states understanding. KARINA Gonzalez
[2022-09-22 13:56] VITALS: BP 127/61; PULSE 84; RESP 18; TEMP 36.3; O2SAT 93
--- NOTE | 2022-09-22 14:07 | PCM.DC ---
Discharge Instructions Diet Discharge Diet: No restrictions Activity Lifting Restrictions: 20 lb weight lifting restriction Dressing / Incision Call your doctor if your incision/area has: Continuous Slow Oozing, Sudden Increased Bleeding, Increased Pain/ Swelling, Increased Redness, Foul Smelling Discharge and Swelling at the incision site Call your doctor if you observe: Fever of 101 or Higher, Inability to urinate, Inability to have a bowel movement, Shortness of breath, Chest pain, Calf discomfort and Uncontrolled pain Change Dressing in: 2 days Cleanse incision/area with: Soap & Water Additional Dressing/Incision Instructions:: Home health to change dressing 1-[address] antibiotic ointment to the suture line daily. Please teach patient how to do this so he can eventually start to do it for himself. May wash the suture line with soap and water at the time of the dressing change and pat dry before placing antibiotic ointment. Follow Up Care Please Follow Up With: Landry Medina MD When: Tuesday September 27, 2022 at 11:00 am at our office. Phone number [phone] [address] [place], [address] [address]. Test Results: Test results from this visit will be discussed in further detail at your follow-up appointment, if applicable. Discharge Plan Admission Admit Date/Time: 09/20/22 13:35 Attending Provider: Landry Medina Primary Care Provider: More Salazar Consulting Providers: Mishel Eric Discharge Orders/Prescriptions Prescriptions: New tamsulosin 0.4 mg Capsule 0.4 mg PO DAILY 7 Days Qty: 7 0RF clindamycin HCl 300 mg capsule 300 mg PO TID 7 Days Qty: 21 0RF L.acidoph,saliva-B.bif-S.therm [Acidophilus Probiotic Blend] 175 mg capsule 1 cap PO DAILY 14 Days Qty: 14 0RF Continued amlodipine 5 mg tablet 5 mg PO DAILY aspirin 81 mg tablet,delayed release (DR/EC) 81 mg PO DAILY Label Comments: STOP 3 DAYS PRIOR levothyroxine 50 mcg tablet 50 mcg PO DAILY metoprolol tartrate 25 mg tablet 25 mg PO BID cholecalciferol (vitamin D3) 1,250 mcg (50,000 unit) capsule 50,000 unit PO SUWE Referrals / Follow Up: More Salazar DO [Primary Care Provider] - Disposition Disposition (needs filled in before D/C Order can be placed): Home Health Service
--- NOTE | 2022-09-22 14:37 | PCM.PN.SRG ---
Subjective Subjective Postop #2 Patient denies any complaints of pain. He states he is voiding fine now. Objective Data Objective Data Vital Signs: Vital Signs Temp Pulse Resp BP Pulse Ox O2 Del Method O2 Flow Rate 97.4 F L 84 18 127/61 H 93 Room Air 1 09/22/22 13:56 09/22/22 13:56 09/22/22 13:56 09/22/22 13:56 09/22/22 13:56 09/22/22 13:57 09/20/22 14:28 Oxygen Flow Rate (L/min) 1 Oxygen Delivery Method Room Air Weight: 134 lb 4.184 oz Body Mass Index (BMI) 21.5 Intake & Output: Intake and Output for Last 24 Hours 09/20/22 09/21/22 09/22/22 23:59 23:59 23:59 Intake Total 1544.25 / 1544.25 1820 / 1820 100 / 100 Output Total 0 / 0 875 / 875 725 / 725 Balance 1544.25 / 1544.25 945 / 945 -625 / -625 Lab / Micro Data Result Diagrams: 09/21/22 04:42 09/22/22 06:05 Labs: Laboratory Results - last 24 hr 09/22/22 06:05: Sodium 132 L, Potassium 5.0, Chloride 100, Carbon Dioxide 29.0, Anion Gap 3 L, BUN 34 H, Creatinine 1.00, Estim Creat Clear Calc 44.83, Est GFR (MDRD) Af Amer 91, Est GFR (MDRD) Non-Af 75, BUN/Creatinine Ratio 34.0 H, Glucose 97, Calcium 8.9 Physical Exam Const alert and oriented x3 General Appearance: cooperative HEENT normocephalic HEENT Narrative: Very hard of hearing. Eyes General Eye: normal appearance of both eyes Resp normal respiratory effort Effort and Inspection: able to speak in complete sentences Cardio regular rate Narrative: States he is voiding just fine now. Extremity normal capillary refill Skin Skin Narrative: Right ear incision and sutures are dry and intact. Minimal swelling. The posterior skin flap looks well approximated with no signs of hematoma. Placing antibiotic ointment on the suture line and covering with a dressing. 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 He does not want any pain medication for home. Incision and flap are dry and intact. No signs of hematoma. Place antibiotic ointment on incision line and cover with dry gauze. Continue Clindamycin po at home for a few days. Instructed to keep head elevated. Home health is in place to help him with his dressing changes. 20 lb weight lifting restriction. He is now voiding without difficulty. Will continue Tamsulosin x 7 days. Discharge to home today. He will have home health to assist with dressing changes to his right ear. Follow up Tuesday09/27/22 at 11:[address] Medina in his office.
--- NOTE | 2022-09-22 15:05 | CCN.REFER ---
Discharge Planning Discharge Instructions sent to [facility] via [facility]. Erika Stroud, Discharge Planning Asst.
--- NOTE | 2022-09-22 15:09 | PHA.DC.MC ---
Pharmacy Service has performed discharge medication reconciliation and counseling for this patient. 1. CLINDAMYCIN 300MG PO TID X 7 DAYS 2. PROBIOTIC 1C PO DAILY x 14 DAYS 3. TAMSULOSIN 0.4MG PO DAILY x 7 DAYS The patient's discharge medication list was reviewed for discrepancies and discrepancies were resolved. Home Medications amlodipine 5 mg tablet 5 mg PO DAILY 07/22/22 aspirin 81 mg tablet,delayed release 81 mg PO DAILY 07/22/22 levothyroxine 50 mcg tablet 50 mcg PO DAILY 07/22/22 metoprolol tartrate 25 mg tablet 25 mg PO BID 07/22/22 cholecalciferol (vitamin D3) 1,250 mcg (50,000 unit) capsule 50,000 unit PO SUWE 08/26/22 L.acidophil,salivari-Bifido bifidum-Strep thermoph 175 mg capsule (Acidophilus Probiotic Blend) 1 cap PO DAILY 14 days #14 caps 09/22/22 clindamycin HCl 300 mg capsule 300 mg PO TID 7 days #21 caps 09/22/22 tamsulosin 0.4 mg capsule 0.4 mg PO DAILY 7 days #7 caps 09/22/22 The patient was counseled on the following discharge medications and changes in medications for homegoing were reviewed. The Reason for Use, instructions for use, and potential side effects were reviewed for all new medications. The patient's questions regarding all of their medications were answered. The patient was able to verbally demonstrate an understanding of their discharge medications. Patient counseled by registered pharmacy technicianZeyad.
== END 2022-09-22 16:02 | disposition home health service (06) ==
LOC: SDC 14:14 → MS3 14:14
PROVIDERS: Internal Medicine; Admitting Provider Surgery; PCP Family Medicine; Referring Provider Surgery; Visit Provider Surgery
PROC: (CPT 21016; principal; 2022-09-20 09:45)
DX: C44.222 Squamous cell carcinoma of skin of right ear and external auricular canal (principal); I48.92 Unspecified atrial flutter; R33.9 Retention of urine, unspecified; N18.1 Chronic kidney disease, stage 1; Z87.891 Personal history of nicotine dependence; E78.00 Pure hypercholesterolemia, unspecified; I12.9 Hypertensive chronic kidney disease with stage 1 through stage 4 chronic kidney disease, or unspecified chronic kidney disease; Z85.828 Personal history of other malignant neoplasm of skin; Z92.3 Personal history of irradiation; H57.10 Ocular pain, unspecified eye; H92.01 Otalgia, right ear; Z79.899 Other long term (current) drug therapy; Z79.82 Long term (current) use of aspirin; Z79.890 Hormone replacement therapy; E03.9 Hypothyroidism, unspecified; I25.10 Atherosclerotic heart disease of native coronary artery without angina pectoris
CPT/HCPCS: 21016; 14061; 00300; 13152; 36415; 80048; 85027; 88305; 88331; 88341; 88342; 94668; 96365; 96366; 96372; 99221; 99252; J7120; G0378; G0463; J2405

== ENCOUNTER 2022-11-01 13:45 | Outpatient (RCR) | payer MEDICARE, SELFPAY ==
[2022-10-25 10:31] VITALS: BP 132/60; PULSE 67; RESP 18; TEMP 36.6
--- NOTE | 2022-10-25 11:19 | PCM.WC.HP ---
History of Present Illness Date of Service: 10/25/22 Chief Complaint: Right ear ulcer after removal of squamous cell carcinoma History of Wound: 86 year old man presents with a painful nonhealing ulcer superior helical rim right ear. He first noticed it several months ago, and it has increased in size and has become more painful. He denies any bleeding or drainage. He denies any trauma. He denies fever. He has had skin cancers removed in the past on his left nasal tip. The area needed radiation therapy afterward. 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 He was discharged from the hospital on 09/22/22 Pathology showed the ulcerated lesion was an invasive well to moderately differentiated squamous cell carcinoma, completely excised. Basal cell carcinoma focally extending to the 6 o'clock margin of excision. Extensive solar elastosis. Cartilage with no significant pathologic change. If the squamous cell carcinoma extends to the 6 o'clock margin of excision, then the option is more surgery with re-excision with a wider margin. Since it's a basal cell carcinoma that is focally extending to the 6 o'clock margin of excision, re-excision is not mandatory. Also radiation therapy would be an option. Initially he was reluctant to that. Another option is the use of Aldara which is applied daily at night with weekends off. Do this for 6 weeks. Then followup in 2 months. It has to be a flat basal cell carcinoma for it to have a positive effect. Aldara is much more effective on actinic lesions. He has been using silver alginate twice a week for wound care. [facility] him with his dressing changes. Today denies fever, chills, nausea or vomiting. Progress of Wound: Right ear ulcer between the skin flap and the edge of the ear. . 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 Cardiology follow-up encounter Chronic kidney disease, stage 1 Chronic skin ulcer of right ear Coronary artery disease involving coronary bypass graft of [place] heart Easy bruising Essential hypertension Facial basal cell cancer Former smoker Heart disease Heartburn History of echocardiogram History of irregular heartbeat History of radiation therapy History of radiation to head and neck region History of stress test Hypercholesterolemia Hypothyroidism Lesion of right external ear Personal history of skin cancer Right ear pain Shortness of breath on exertion 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 Vitamin deficiency Wears dentures Wears glasses Wears hearing aid Wears partial dentures Home Medications amlodipine 5 mg tablet 5 mg PO DAILY 07/22/22 [History Last Taken 09/20/22] aspirin 81 mg tablet,delayed release 81 mg PO DAILY 07/22/22 [History Last Taken 09/16/22] levothyroxine 50 mcg tablet 50 mcg PO DAILY 07/22/22 [History Last Taken 09/20/22] metoprolol tartrate 25 mg tablet 25 mg PO BID 07/22/22 [History Last Taken 09/20/22] cholecalciferol (vitamin D3) 1,250 mcg (50,000 unit) capsule 50,000 unit PO SUWE 08/26/22 [History Last Taken 09/20/22] tamsulosin 0.4 mg capsule 0.4 mg PO DAILY 7 days #7 caps 09/22/22 [Rx Last Taken Unknown] mupirocin 2 % topical ointment 1 applic topical DAILY #22 grams 09/27/22 [Rx Last Taken Unknown] Allergy/AdvReac Type Severity Reaction Status Date / Time No Known Drug Allergies Allergy Unknown Other Verified 10/14/22 11:34 Family History Mother Cancer Father Diabetes type 2 CVA (cerebral vascular accident) Surgical History History of basal cell carcinoma excision History of quadruple bypass History of squamous cell carcinoma excision Social History household members: other details: Granddaughter current occupational status: retired Smoking Status: Former smoker alcohol intake: never substance use type: does not use caffeine: Yes Type: coffee Number of servings: 3 ROS Constitutional Constitutional: Denies chills or fever(s) Eyes Eyes: Reports none ENT HEENT: Reports none Cardiovascular Cardiovascular: Denies chest pain or dyspnea Respiratory/Chest Respiratory/Chest: Denies cough or dyspnea Gastrointestinal Gastrointestinal: Denies diarrhea, nausea or vomiting Genitourinary Genitourinary: Reports none Musculoskeletal Musculoskeletal: Reports joint pain and muscle weakness Integumentary Integumentary: Reports skin ulcer Neurologic Neurologic: Reports systems reviewed and no addt'l complaints, except as documented Psychiatric Psychiatric: Reports none Vital Signs Vital Signs Vital Signs: 10/25/22 10:31 Temperature 97.9 F Temperature Source Temporal Pulse Rate 67 Respiratory Rate 18 Blood Pressure 132/60 H Blood Pressure Mean 84 Blood Pressure Source Monitor Blood Pressure Position Semi-Fowlers Blood Pressure Location Left Arm Oxygen Delivery Method Room Air Physical Exam Const alert and oriented x3 General Appearance: cooperative HEENT normocephalic HEENT Narrative: Very hard of hearing, even with hearing aids in place Head and Scalp: atraumatic Eyes General Eye: normal appearance of both eyes Neck full ROM Resp normal respiratory effort and normal air movement Effort and Inspection: able to speak in complete sentences Cardio regular rate and regular rhythm GI soft to palpation and non-tender Extremity normal capillary refill Skin Wound Narrative: Ulcer on edge of skin flap and ear, no cartilage present today. Neuro oriented x3 Sensorium / Orientation: awake and alert Psych thought process normal and cooperative Debridement Note Debridement Note Wound debrided: Ear ulcer Laterality: Right Wound Grade/Stage: Stage 3 Type of Debridement: Excisional debridement Anesthesia Used: 4% Lidocaine Solution and 5% Lidocaine Gel Depth: Down to and including healthy tissue, in the subcutaneous layer and to muscle Percentage of wound debrided: 100 Instrument Used: 3mm curette Tissue Removed: Devitalized tissue and slough Severity: Fat Layer Exposed Amount of bleeding with debridement: Mild Bleeding Controlled with: Pressure and Compression and gauze Post-Debridement Measurements and Additional Note: Post-Debridement Measurements/Treatment [place] - Nurse 1 - General Ulcer Assessment Start: 10/25/22 10:31 Freq: Status: Active Protocol: TREVER Activity Type Activity Date Activity User E-sign Co-sign Detail Recorded Client Recorded Date Recorded By Document 10/25/22 10:31 FAUSTO [id number] 10/25/22 10:41 DL 10/25/22 10:31 - Today's Visit Information Type of service Initial Visit Arrival Mode Ambulatory Accompanied by granddaughter- Uzma and her Clint Patient Identification Verified (Name & Yes ) Patient Requires Transmission-Based Yes Precautions Safety Precautions Fall Prevention Vital Signs Temperature (97.8 F-99.1 F) 97.9 F Temperature Source Temporal Pulse Rate (60-100) 67 Pulse Location Monitor Respiratory Rate (12-18) 18 Respiratory rate source Ausculation Oxygen Delivery Method Room Air Blood Pressure (90/60-120/80) 132/60 H Blood Pressure Mean 84 Source Monitor Position Semi-Fowlers Blood Pressure Location Left Arm History Since Last Visit- (Skip if this is Patient's initial visit) Left Footwear Regular Shoe Right Footwear Regular Shoe Pain Scale: 0-10 Numeric Is Patient Pain Free? Yes Communication Assessment Preferred language Danish Able to Read Yes Able to Write Yes Communication Tools None Caregiver Communication Skills No Impairment Impairment Right Hearing Abillity Hard of Hearing ,Use of Hearing Aid Left Hearing Abillity Hard of Hearing ,Use of Hearing Aid Visual Assistive Devices Glasses Teaching Assessment Preferences Verbal,Written, Demonstration Barriers to Learning None Readiness To Learn Excellent Willingness to Engage in Self Management High Activies Readiness to Engage in Self Management High Activities Anxiety Level Calm Cooperation Cooperative Perception Coherent Interest in Health Problem Asks Questions Education Importance Acknowledges Need Does Patient Smoke tobacco or other No substances Smoking Status Former smoker Is Patient Diabetic No Functional Assessment Recent Decline in Ability to Perform Ambulation Assistive Device With Patient No Culture/Lutheran/Matrix Drier Tender Cultural/Lutheran Needs that may affect No Treatment Plan Would you allow our hospital duty manager to No meet you for the purpose of spiritual/ emotional support? Matrix Drier Tender to contact place of church No Teaching: Wound Center Dressing Your Wound -Person Taught Patient *Welcome to the Wound Center -Person Taught Patient,Family -Teaching Method Discussion RT EAR -Person Taught Patient,Family Welcome to the Wound Care Center English HO - Nurse 1 - General Ulcer Measurement Start: 10/25/22 10:31 Freq: Status: Active Protocol: Activity Type Activity Date Activity User E-sign Co-sign Detail Recorded Client Recorded Date Recorded By Document 10/25/22 10:31 DL [id number] 10/25/22 10:41 DL 10/25/22 10:31 Wound Center Nurse 1 RT EAR -Current Size (cm) - Length 3 -Current Size (cm) - Width 0.3 -Current Size (cm) - Depth 0.1 -Total Square Cm 0.9 -Photo Taken Yes -Tunneling No -Undermining/Tunneling No -Circular Undermining No -Exudate Amt Small -Exudate Type Serosanguineous -Wound Margin Distinct, Outline Attached -Granulation Amt Small (1-33%) -Granulation Quality [place] -Slough/Fibrin Yes -Necrosis Amt Large (67-100%) -Necrotic Tissue Type Eschar -Moisture (Melisa-wound Skin Appearance) Assessed -Color (Melisa-wound Skin Appearance) Assessed -Temperature (Melisa-wound Skin No Abnormality Appearance) (Pt Warm) -Tenderness on Palpation (Melisa-wound No Skin Appearance) -Ulcer Cleansing Rinsed/ Irrigated with Saline -Anesthetic Used 5% Lidocaine Gel Lower Limb Edema Present NA WC - Nurse 2 - General Ulcer CM Notes Start: 10/25/22 10:31 Freq: Status: Active Protocol: Activity Type Activity Date Activity User E-sign Co-sign Detail Recorded Client Recorded Date Recorded By Document 10/25/22 11:01 MW [id number] 10/25/22 11:07 MW 10/25/22 11:01 Wound Center Nurse 2 RT EAR -Time 11:03 -Correct Patient Yes -Correct Side, Site, Position Yes -Correct Procedure Yes -Procedure Performed Yes -Type of Procedure Debridement -Clinical Debridement Subcutaneous -Tissue Removed Subcutaneous -Post Debridement (cm) - Length 2.4 -Post Debridement (cm) - Width 0.5 -Post Debridement (cm) - Depth 0.1 -Total Square (Post) (cm) 1.20 -Area of Debridement (cm) - Length 2.4 -Area of Debridement (cm) - Width 0.5 -Total Square (Area) (cm) 1.20 -Tunneling No -Undermining/Tunneling No -Circular Undermining No -Wound/Ulcer Outcome Not Healed -Ulcer Cleansing Rinsed/ Irrigated with Saline -Foul Odor after Cleansing No -Bioengineered Tissue No -Bleeding Controlled with Pressure -Treatment Response Procedure Tolerated Well -Offloading No -Debridement - Subq, 1st 20sq cm Yes Pain Scale: 0-10 Numeric Is Patient Pain Free? 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 Wound care - Moistened Cinda to the right ear ulcer 3 times per week. He has [facility] to assist with his dressing changes. He would benefit from an advances wound healing product such as Epifix to help with healing this ulcer. Will apply to his insurance company for approval of this product. Follow up one week.
[2022-11-01 13:19] VITALS: BP 148/58; PULSE 86; RESP 16; TEMP 35.7
--- NOTE | 2022-11-01 14:28 | PN.PCM_ITS ---
History of Present Illness Date of Service: 11/01/22 Chief Complaint: Right ear ulcer after removal of squamous cell carcinoma History of Wound: 86 year old man presents with a painful nonhealing ulcer superior helical rim right ear. He first noticed it several months ago, and it has increased in size and has become more painful. He denies any bleeding or drainage. He denies any trauma. He denies fever. He has had skin cancers removed in the past on his left nasal tip. The area needed radiation therapy afterward. 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 He was discharged from the hospital on 09/22/22 Pathology showed the ulcerated lesion was an invasive well to moderately differentiated squamous cell carcinoma, completely excised. Basal cell carcinoma focally extending to the 6 o'clock margin of excision. Extensive solar elastosis. Cartilage with no significant pathologic change. If the squamous cell carcinoma extends to the 6 o'clock margin of excision, then the option is more surgery with re-excision with a wider margin. Since it's a basal cell carcinoma that is focally extending to the 6 o'clock margin of excision, re-excision is not mandatory. Also radiation therapy would be an option. Initially he was reluctant to that. Another option is the use of Aldara which is applied daily at night with weekends off. Do this for 6 weeks. Then followup in 2 months. It has to be a flat basal cell carcinoma for it to have a positive effect. Aldara is much more effective on actinic lesions. He has been using silver alginate twice a week for wound care. He has [facility] to assist him with his dressing changes. Today denies fever, chills, nausea or vomiting. Progress of Wound: Right ear ulcer is healed today. Objective Data Objective Data Vital Signs: Vital Signs Temp Pulse Resp BP O2 Del Method 96.3 F L 86 16 148/58 H Room Air 11/01/22 13:19 11/01/22 13:19 11/01/22 13:19 11/01/22 13:19 10/25/22 10:31 Oxygen Delivery Method Room Air Charges/Coding Procedures Integumentary 111xxx-113xx: 50600 Global Visit Physical Exam Const alert and oriented x3 General Appearance: cooperative HEENT normocephalic HEENT Narrative: Very hard of hearing, even with hearing aids in place Head and Scalp: atraumatic Eyes General Eye: normal appearance of both eyes Neck full ROM Resp normal respiratory effort and normal air movement Effort and Inspection: able to speak in complete sentences Cardio regular rate and regular rhythm GI soft to palpation and non-tender Extremity normal capillary refill Neuro oriented x3 Sensorium / Orientation: awake and alert Psych thought process normal and cooperative Debridement Note Debridement Note No debridement was completed: No debridement was completed today Post-Debridement Measurements and Additional Note: Post-Debridement Measurements/Treatment [place] - Nurse 1 - General Ulcer Assessment Start: 10/25/22 10:31 Freq: Status: Active Protocol: TREVER Activity Type Activity Date Activity User E-sign Co-sign Detail Recorded Client Recorded Date Recorded By Document 10/25/22 10:31 DL [id number] 10/25/22 10:41 DL Document 11/01/22 13:19 [id number] 11/01/22 13:21 10/25/22 11/01/22 10:31 13:19 - Today's Visit Information Type of service Initial Visit Follow-up Visit (Physician/CLINICAL OFFICE TECHNICIAN ) Arrival Mode Ambulatory Ambulatory Accompanied by granddaughter- Uzma and her Clint Patient Identification Verified (Name & Yes Yes ) Patient Requires Transmission-Based Yes No Precautions Safety Precautions Fall Prevention Vital Signs Temperature (97.8 F-99.1 F) 97.9 F 96.3 F L Temperature Source Temporal Temporal Pulse Rate (60-100) 67 86 Pulse Location Monitor Monitor Respiratory Rate (12-18) 18 16 Respiratory rate source Ausculation Observation Oxygen Delivery Method Room Air Blood Pressure (90/60-120/80) 132/60 H 148/58 H Blood Pressure Mean (mm Hg) 84 88 Source Monitor Monitor Position Semi-Fowlers Semi-Fowlers Blood Pressure Location Left Arm Left Arm History Since Last Visit- (Skip if this is Patient's initial visit) Have you changed medications since your No last visit? Any new allergies or adverse reactions No Had a fall/change in ADL's that may No increase risk of falls Signs or symptoms of abuse and/or No neglect since last visit Have you been in the hospital since your No last visit? Has dressing in place as prescribed Yes Has compression in place as prescribed N/A Has offloadiing in place as prescribed N/A Experienced any changes in pain level or No management Left Footwear Regular Shoe Regular Shoe Right Footwear Regular Shoe Regular Shoe Pain Scale: 0-10 Numeric Is Patient Pain Free? Yes Yes Communication Assessment Preferred language Maldivian Able to Read Yes Able to Write Yes Communication Tools None Caregiver Communication Skills No Impairment Impairment Right Hearing Abillity Hard of Hearing ,Use of Hearing Aid Left Hearing Abillity Hard of Hearing ,Use of Hearing Aid Visual Assistive Devices Glasses Teaching Assessment Preferences Verbal,Written, Demonstration Barriers to Learning None Readiness To Learn Excellent Willingness to Engage in Self Management High Activies Readiness to Engage in Self Management High Activities Anxiety Level Calm Cooperation Cooperative Perception Coherent Interest in Health Problem Asks Questions Education Importance Acknowledges Need Does Patient Smoke tobacco or other No substances Smoking Status Former smoker Is Patient Diabetic No Functional Assessment Recent Decline in Ability to Perform Ambulation Assistive Device With Patient No Culture/Christian/Water System Operator Cultural/Christian Needs that may affect No Treatment Plan Would you allow our hospital saw edge fuser circular to No meet you for the purpose of spiritual/ emotional support? Water System Operator to contact place of baptist No Teaching: Wound Center Dressing Your Wound -Person Taught Patient *Welcome to the Wound Center -Person Taught Patient,Family -Teaching Method Discussion RT EAR -Person Taught Patient,Family Welcome to the Wound Care Center English HO - Nurse 1 - General Ulcer Measurement Start: 10/25/22 10:31 Freq: Status: Active Protocol: Activity Type Activity Date Activity User E-sign Co-sign Detail Recorded Client Recorded Date Recorded By Document 10/25/22 10:31 DL [id number] 10/25/22 10:41 DL Document 11/01/22 13:19 [id number] 11/01/22 13:21 JF 10/25/22 11/01/22 10:31 13:19 Wound Center Nurse 1 RT EAR -Combined with other wound No -Current Size (cm) - Length 3 0 -Current Size (cm) - Width 0.3 0 -Current Size (cm) - Depth 0.1 0 -Total Square Cm 0.9 0 -Photo Taken Yes Yes -Epithelialization Large 67-100% -Tunneling No No -Undermining/Tunneling No No -Circular Undermining No No -Exudate Amt Small None Present -Exudate Type Serosanguineous -Wound Margin Distinct, Flat & Intact Outline Attached -Granulation Amt Small (1-33%) None Present (0 %) -Granulation Quality Good Pine -Slough/Fibrin Yes No -Necrosis Amt Large (67-100%) -Necrotic Tissue Type Eschar -Structure Exposed N/A -Texture (Melisa-wound Skin Appearance) Assessed -Moisture (Melisa-wound Skin Appearance) Assessed Assessed,Dry/ Scaly -Color (Melisa-wound Skin Appearance) Assessed Assessed -Temperature (Melisa-wound Skin No Abnormality No Abnormality Appearance) (Pt Warm) (Pt Warm) -Tenderness on Palpation (Melisa-wound No No Skin Appearance) -Ulcer Cleansing Rinsed/ Rinsed/ Irrigated with Irrigated with Saline Saline -Foul Odor after Cleansing No -Anesthetic Used 5% Lidocaine Gel Lower Limb Edema Present NA NA WC - Nurse 2 - General Ulcer CM Notes Start: 10/25/22 10:31 Freq: Status: Active Protocol: Activity Type Activity Date Activity User E-sign Co-sign Detail Recorded Client Recorded Date Recorded By Document 10/25/22 11:01 [id number] 10/25/22 11:07 MW Document 11/01/22 13:19 [id number] 11/01/22 13:21 10/25/22 11/01/22 11:01 13:19 Wound Center Nurse 2 RT EAR -Time 11:03 -Correct Patient Yes -Correct Side, Site, Position Yes -Correct Procedure Yes -Procedure Performed Yes -Type of Procedure Debridement -Clinical Debridement Subcutaneous -Tissue Removed Subcutaneous -Post Debridement (cm) - Length 2.4 -Post Debridement (cm) - Width 0.5 -Post Debridement (cm) - Depth 0.1 -Total Square (Post) (cm) 1.20 -Area of Debridement (cm) - Length 2.4 -Area of Debridement (cm) - Width 0.5 -Total Square (Area) (cm) 1.20 -Tunneling No -Undermining/Tunneling No -Circular Undermining No -Wound/Ulcer Outcome Not Healed -Ulcer Cleansing Rinsed/ Irrigated with Saline -Foul Odor after Cleansing No -Bioengineered Tissue No -Bleeding Controlled with Pressure -Treatment Response Procedure Tolerated Well -Offloading No -Debridement - Subq, 1st 20sq cm Yes Pain Scale: 0-10 Numeric Is Patient Pain Free? Yes Yes WC - Nurse 3 - General Ulcer D/C NN Start: 10/25/22 10:31 Freq: Status: Active Protocol: Activity Type Activity Date Activity User E-sign Co-sign Detail Recorded Client Recorded Date Recorded By Document 10/25/22 11:22 DL [id number] 10/25/22 11:23 DL Document 11/01/22 13:22 JF [id number] 11/01/22 13:23 JF 10/25/22 11/01/22 11:22 13:22 Wound Care Center Nurse 3 RT EAR -Ulcer Cleansing Rinsed/ Rinsed/ Irrigated with Irrigated with Saline Saline -Foul Odor after Cleansing No No -Primary Dressing Applied Promogran Cinda Matter -Primary Dressing Covered/Secured with Dry Gauze -Promogran Cinda Matter 1 Treatment Response Procedure Tolerated Well Pain Scale: 0-10 Numeric Is Patient Pain Free? 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 His insurance approved the Epifix but he came in today and his ulcer was healed. Encouraged him to massage his healing scar. He will need skin checks every 6 months. It was recommended to the patient to use sunscreen when outside to help minimize darkening of the healing scars. He will follow up in the office in 2 months. They are to call and come in sooner if he develops any issues.
== END 2022-11-01 23:59 | disposition home or self-care (01) ==
LOC: WC 13:45
PROVIDERS: PCP Family Medicine; Referring Provider Surgery; Visit Provider Nurse Practitioner Family
DX: L98.492 Non-pressure chronic ulcer of skin of other sites with fat layer exposed (principal); C44.222 Squamous cell carcinoma of skin of right ear and external auricular canal; I12.9 Hypertensive chronic kidney disease with stage 1 through stage 4 chronic kidney disease, or unspecified chronic kidney disease; N18.1 Chronic kidney disease, stage 1; E78.00 Pure hypercholesterolemia, unspecified; I25.10 Atherosclerotic heart disease of native coronary artery without angina pectoris; E03.9 Hypothyroidism, unspecified; Z79.82 Long term (current) use of aspirin; Z79.890 Hormone replacement therapy; Z92.3 Personal history of irradiation; Z95.1 Presence of aortocoronary bypass graft; Z87.891 Personal history of nicotine dependence
CPT/HCPCS: 11042; 99213; G0463

== ENCOUNTER 2022-12-01 14:10 | Inpatient (IN) | payer MEDICARE, SELFPAY ==
[2022-12-01 14:23] VITALS: BP 133/65; PULSE 93; RESP 16; TEMP 36.2; O2SAT 94; BMI 18.7
[2022-12-01] MEDS: Ensure Plus High Protein 120 ML LIQUID PO (18:00)
--- NOTE | 2022-12-01 19:47 | HP.PCM_ITS ---
HPI - General General Date of Admission: 12/01/22 Date of Service: 12/01/22 Chief Complaint: Here for rehabilitation. HPI Narrative 11/28/2022 GABRIEL LUCAS, is a 87 Male admitted to [facility] after a fall. Fall from standing, left hip pain, no head injury, no loss of consciousness. Cardiology clearance ordered secondary to history of CABG. Dilaudid for pain. PT/OT. X-ray left hip showed left hip fracture. 11/29/2022 Cardiology noted atrial flutter, recommended beta rick, anticoagulation after surgery. 11/29/2022 Orthopedics performed left hip cephalomedullary nail fixation. WBAT. PT/OT. Lovenox 40mg daily x 6 weeks for DVT prophylaxis. 11/30/2022 Pain controlled. Hemoglobin 9. 12/01/2022 Admit to TCU with debility, here for rehabilitation, strengthening, prior to discharge home with granddaughter. [facility] Medical History Acute post-operative pain Atrial flutter Basal cell carcinoma (BCC) of auricle of left ear Cardiology follow-up encounter Chronic kidney disease, stage 1 Chronic skin ulcer of right ear Coronary artery disease involving coronary bypass graft of nikolai heart Easy bruising Essential hypertension Facial basal cell cancer Former smoker Heart disease Heartburn History of echocardiogram History of irregular heartbeat History of radiation therapy History of radiation to head and neck region History of stress test Hypercholesterolemia Hypothyroidism Lesion of right external ear Personal history of skin cancer Right ear pain Shortness of breath on exertion 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 Vitamin deficiency Wears dentures Wears glasses Wears hearing aid Wears partial dentures Home Medications amlodipine 5 mg tablet 5 mg PO DAILY BP 07/22/22 [History Last Taken 09/20/22] aspirin 81 mg tablet,delayed release 81 mg PO DAILY heart 07/22/22 [History Last Taken 09/16/22] levothyroxine 50 mcg tablet 50 mcg PO DAILY thyroid 07/22/22 [History Last Taken 09/20/22] metoprolol tartrate 25 mg tablet 25 mg PO BID bp 07/22/22 [History Last Taken 09/20/22] cholecalciferol (vitamin D3) 1,250 mcg (50,000 unit) capsule 50,000 unit PO .Every other week supplement 08/26/22 [History Last Taken 09/20/22] tamsulosin 0.4 mg capsule 0.4 mg PO DAILY prostate 7 days #7 caps 09/22/22 [Rx Last Taken Unknown] mupirocin 2 % topical ointment 1 applic topical DAILY NA #22 grams 09/27/22 [Rx Last Taken Unknown] acetaminophen 325 mg capsule 650 mg PO Q4H PRN pain (scale score 1-3) 12/01/22 [History Last Taken Unknown] apixaban 2.5 mg tablet 2.5 mg PO BID blood thinner 12/01/22 [History Last Taken Unknown] cefdinir 300 mg capsule 300 mg PO BID antibiotic 12/01/22 [History Last Taken Unknown] cyanocobalamin (vitamin B-12) 1,000 mcg capsule 1,000 mcg PO DAILY supplement 12/01/22 [History Last Taken Unknown] doxycycline monohydrate 100 mg capsule 100 mg PO BID antibiotic 12/01/22 [History Last Taken Unknown] ferrous sulfate 325 mg (65 mg iron) tablet 325 mg PO QODAY supplement 12/01/22 [History Last Taken Unknown] hydrocodone-acetaminophen 5-325mg 5mg-325mg 1 tab PO Q6H PRN pain (scale score 4-6) 12/01/22 [History Last Taken Unknown] polyethylene glycol 3350 17 gram oral powder packet (Miralax) 17 g PO DAILY constipation 12/01/22 [History Last Taken Unknown] Allergy/AdvReac Type Severity Reaction Status Date / Time No Known Drug Allergies Allergy Unknown Other Verified 10/14/22 11:34 Family History Mother Cancer Father Diabetes type 2 CVA (cerebral vascular accident) Surgical History History of basal cell carcinoma excision History of quadruple bypass History of squamous cell carcinoma excision Social History household members: other details: Granddaughter current occupational status: retired Smoking Status: Former smoker alcohol intake: never substance use type: does not use caffeine: Yes Type: coffee Number of servings: 3 ROS Constitutional Constitutional: Denies chills, fever(s) or weight gain ENT HEENT: Denies headache(s), nasal congestion or nasal discharge Cardiovascular Cardiovascular: Denies chest pain or palpitations Respiratory/Chest Respiratory/Chest: Denies cough, excessive phlegm production or shortness of breath with exertion Gastrointestinal Gastrointestinal: Denies abdominal pain, nausea or vomiting Genitourinary Genitourinary: Denies dysuria Musculoskeletal Musculoskeletal: Denies joint pain or joint swelling Integumentary Integumentary: Denies rash or wounds Neurologic Neurologic: Denies focal weakness, numbness or tingling Psychiatric Psychiatric: Denies anxiety, auditory hallucinations, depression, homicidal ideation or suicidal ideation Vital Signs Vital Signs Vital Signs: 12/01/22 14:23 12/01/22 14:23 Temperature 97.1 F L Temperature Source Temporal Pulse Rate 93 Pulse Rhythm Regular Pulse Strength Normal (2+) Respiratory Rate 16 Respiratory Effort Normal Non-Labored Respiratory Depth Normal Respiratory Pattern Normal Blood Pressure 133/65 H Blood Pressure Mean 87 Blood Pressure Source Monitor Blood Pressure Position Semi-Fowlers Blood Pressure Location Left Arm Pulse Ox 94 Oxygen Delivery Method Room Air Room Air Weight Weight: 59.33 kg Body Mass Index (BMI) 18.7 Physical Exam Const alert General Appearance: cooperative HEENT normocephalic Eyes PERRL and EOMs intact bilaterally Neck supple, no JVD and no carotid bruits Resp normal respiratory effort, normal air movement and clear to auscultation bilaterally Cardio regular rate and regular rhythm GI normal to inspection, nondistended, normoactive bowel sounds, non-tender and non-distended Extremity normal capillary refill General Extremity: Negative for edema Skin no rashes or lesions noted General Skin Exam: no breakdown Psych affect normal Appearance: appropriate Assessment & Plan Assessment/Plan (1) Debility: (2) Closed left hip fracture: (3) Atrial flutter: (4) Coronary artery disease: (5) Hypertension: (6) Hyperlipidemia: (7) Hypothyroidism: PLAN: Plan 87 year old male with below past medical history hospitalized for left hip fracture, underwent left hip cephalomedullary nail fixation 11/29/2022, complicated by atrial flutter, admitted to TCU with debility, here for rehabilitation, strengthening, prior to discharge home with granddaughter. * Debility - PT/OT. * Pain - Tylenol 1000mg q8, Tramadol 50mg q6h prn pain (1-5), Oxycodone 2.5mg q4h prn pain (6-10). * Bowel - Miralax 17gm daily, senna/colace 1 tablet bid, Magnesium citrate 300ml daily prn. * Adult immunization - Administer pneumonia vaccine, covid19 vaccine, flu vaccine as appropriate. * DVT prophylaxis - on Eliquis. * Atrial flutter - Metoprolol 25mg bid, Eliquis 2.5mg bid. * Coronary artery disease s/p CABG - Metoprolol 25mg bid, Eliquis 2.5mg bid. * Infectious Disease - Cefdinir 300mg bid thru 12/06/2022, Doxycycline 100mg bid thru 12/06/2022. * B12 deficiency - B12 1000mcg daily thru 01/01/2023. * Nutrition - Ensure Plus 120ml po tid. * Vitamin D deficiency - D3 1000IU daily. * Iron deficiency anemia - Ferrous sulfate 325mg every other day. * Hypothyroidism - Levothyroxine 50mcg daily. * Skin irritation - Calmoseptine topical bid. * Tinea Corporis - Nystatin powder topical bid.
[2022-12-01 19:57] VITALS: BP 130/62; PULSE 106
[2022-12-01] MEDS: Doxycycline 100 MG CAPSULE PO (19:57)
[2022-12-01] MEDS: Cefdinir 300 MG Capsule PO (19:57)
[2022-12-01] MEDS: Metoprolol Tartrate 25 MG Tablet PO (19:57)
[2022-12-01] MEDS: APIXABAN 2.5 MG TABLET (WCH) PO (19:57)
[2022-12-01] MEDS: Menthol/Lanolin/Calamine/Znox 113 GM Tube 1 APPLIC TOPICAL (20:02)
[2022-12-01] MEDS: Nystatin Powder 15gm Bottle 1 APPLIC TOPICAL (20:02)
[2022-12-01] MEDS: Acetaminophen 500 MG Tablet 1000 MG PO (22:46)
--- NOTE | 2022-12-01 23:32 | NURSING ---
Patient voiding a little at time. Bladder scan results showed >513mL urine. Patient straight catheterized at this time with output of 600mL. Patient tolerated well. Continue bladder scans and voiding trial. Will continue to monitor.
[2022-12-02] MEDS: Acetaminophen 500 MG Tablet 1000 MG PO ×3 (05:25→21:03)
[2022-12-02] MEDS: Levothyroxine 50 MCG Tablet PO (05:25)
[2022-12-02 05:57] LABS: Absolute Lymphocyte Count 3.57 X10^3/uL (0.83-4.51); Absolute Neutrophil Count 5.1 X10^3/uL (2.0-7.7); Basophil# 0.06 X10^3/uL; Basophil% 0.6 % (0-1); Eosinophil# 0.17 X10^3/uL; Eosinophils% 1.7 % (0-5); Hematocrit 24.8 % (40-54); Hemoglobin 8.3 g/dL (13.0-16.5); Lymphocyte # 3.57 X10^3/ul (0.83-4.51); Mean Corp Hgb Conc 33.5 g/dL (32-36); Mean Corpuscular Hgb 35.2 pg (27.0-32.0); Mean Corpuscular Volume 105.1 fL (80-94); Monocyte# 0.97 X10^3/uL; Monocyte% 9.8 % (0-10); NRBC Flagged by Analyzer 0 % (0-5); Neutrophil # 5.11 X10^3/uL (2.7-7.7); Neutrophil % 51.6 % (47-70); Platelet Count 240 K/mm3 (150-450); RBC Distribution Width CV 16.1 % (11.6-14.6); RBC Distribution Width SD 61.8 fl (35.1-43.9); Red Blood Count 2.36 M/mm3 (4.6-6.2); White Blood Count 9.9 K/mm3 (4.4-11.0)
[2022-12-02 06:20] LABS: Anion Gap 3 (5-15); BUN 20 mg/dL (7-18); BUN/Creat Ratio 26.5 RATIO (10-20); Calcium,Total 8.5 mg/dL (8.5-10.1); Chloride 102 mmol/L (98-107); Creatinine, Serum 0.76 mg/dL (0.70-1.30); EST Glomerular Filtration Rate 104 mL/min (>60); Est Glom Filt Rate - Afr Amer 125 mL/min (>60); Estimated Creatinine Clearance 42.85 ml/min; Glucose 96 mg/dL (74-106); Potassium 3.9 mmol/L (3.5-5.1); Sodium Level 137 mmol/L (136-145)
--- NOTE | 2022-12-02 09:23 | PHA.CONS_ITS ---
TCU RX Drug Regimen Review Subjective/Objective Subjective/Objective: Subjective: 87 YOM admitted to TCU 12/01/22 from [facility] S/P Left hip nail fixation. Patient with history of CABG and falls. Admitted to TCU for rehabilitation and strengthening prior to discharge to home where he resides with a granddaughter. Objective: Allergies No Known Drug Allergies Allergy (Unknown, Verified 10/14/22 11:34) Other No Known Drug Allergies Current Medications Generic Name Dose Route Start Last Admin Trade Name Freq PRN Reason Stop Dose Admin Acetaminophen 1,000 mg 12/01/22 22:00 12/02/22 05:25 Acetaminophen 500 Mg Tablet PO 1,000 mg Q8 DAVID Administration Apixaban 2.5 mg 12/01/22 22:00 12/01/22 19:57 Apixaban 2.5 Mg Tablet ([facility] [place]) PO 2.5 mg BID DAVID Administration Ascorbic Acid 500 mg 12/02/22 10:00 Ascorbic Acid 500 Mg Tablet PO 1000 [facility] Calamine/Phenol 1 applic 12/01/22 22:00 12/01/22 20:02 Menthol/Lanolin/Calamine/Znox 113 Gm Tube TOPICAL 1 applic BID [facility] Administration Protocol Cefdinir 300 mg 12/01/22 22:00 12/01/22 19:57 Cefdinir 300 Mg Capsule PO 12/06/22 22:01 300 mg BID DAVID Administration Cholecalciferol 25 mcg 12/02/22 10:00 Cholecalciferol (Vit D3) 25 Mcg Tablet (1,000 Units) PO DAILY [facility] Cyanocobalamin 1,000 mcg 12/02/22 10:00 Cyanocobalamin 500 Mcg Tablet PO 01/01/23 10:01 DAILY DAVID Doxycycline Monohydrate 100 mg 12/01/22 22:00 12/01/22 19:57 Doxycycline 100 Mg Capsule PO 12/06/22 22:01 100 mg BID DAVID Administration Levothyroxine Sodium 50 mcg 12/02/22 06:00 12/02/22 05:25 Levothyroxine 50 Mcg Tablet PO 50 mcg 0600 [facility] Administration Magnesium Citrate 300 ml 12/01/22 20:02 Magnesium Citrate 300 Ml PO DAILY PRN Constipation Metoprolol Tartrate 25 mg 12/01/22 22:00 12/01/22 19:57 Metoprolol Tartrate 25 Mg Tablet PO 25 mg BID DAVID Administration Nutritional Formula (Lactose Free) 120 ml 12/01/22 17:45 12/01/22 18:00 Ensure Plus High Protein 120 Ml Liquid PO 120 ml TIDCM DAVID Administration Nystatin 1 applic 12/01/22 22:00 12/01/22 20:02 Nystatin Powder 15gm Bottle TOPICAL 1 applic BID DAVID Administration Protocol Oxycodone HCl 2.5 mg 12/01/22 20:02 Oxycodone 5 Mg Tablet PO Q4H PRN PRN Pain Score 6-10 Polyethylene Glycol 17 gm 12/02/22 10:00 Polyethylene Glycol 3350 17 Gm Packet PO DAILY [facility] Polysaccharide Iron Complex 150 mg 12/02/22 10:00 Iron Polysaccharide Complex 150 Mg Capsule PO DAILY [facility] Senna/Docusate Sodium 1 tablet 12/01/22 22:00 12/01/22 22:46 Senna/Docusate Sodium 1 Tablet PO Not Given BID [facility] Sodium Chloride 10 - 40 ml 12/01/22 15:32 0.9% Saline Lock 10 Ml Syringe IV UD PRN SALINE FLUSH Tamsulosin HCl 0.4 mg 12/02/22 17:30 Tamsulosin Hcl 0.4 Mg Capsule PO DAILY@1730 [facility] Tramadol HCl 50 mg 12/01/22 20:02 Tramadol 50 Mg Tablet PO Q6H PRN PRN Pain Score 1-5 Tuberculin PPD 0.1 ml 12/09/22 10:00 Tuberculin,Purif.Prot.Deriv. 50 Tu/Ml Vial ID 12/09/22 10:01 X1 ONE Tuberculin PPD 0.1 ml 12/02/22 10:00 Tuberculin,Purif.Prot.Deriv. 50 Tu/Ml Vial ID 12/02/22 10:01 X1 ONE Problem List (Updated 12/01/22 @ 19:[address] Jorge Burt MD) Hyperlipidemia (Acute) Hypertension (Chronic) Coronary artery disease (Acute) Closed left hip fracture (Acute) Debility (Acute) Atrial flutter (Acute) Hypothyroidism (Acute) Vital Signs Temp Pulse Resp BP Pulse Ox O2 Del Method 97.1 F L 106 H 16 130/62 H 94 Room Air 12/01/22 14:23 12/01/22 19:57 12/01/22 14:23 12/01/22 19:57 12/01/22 14:23 12/02/22 08:15 Oxygen Delivery Method Room Air Weight: 59.33 kg Body Mass Index (BMI) 18.7 Sodium 137 mmol/L (136-145) 12/02/22 05:33 Potassium 3.9 mmol/L (3.5-5.1) 12/02/22 05:33 Chloride 102 mmol/L (98-107) 12/02/22 05:33 Carbon Dioxide 32.0 mmol/L (21.0-32.0) 12/02/22 05:33 Anion Gap 3 (5-15) L 12/02/22 05:33 BUN 20 mg/dL (7-18) H 12/02/22 05:33 Creatinine 0.76 mg/dL (0.70-1.30) 12/02/22 05:33 Est GFR (MDRD) Af Amer 125 mL/min (>60) 12/02/22 05:33 Est GFR (MDRD) Non-Af 104 mL/min (>60) 12/02/22 05:33 BUN/Creatinine Ratio 26.5 RATIO (10-20) H 12/02/22 05:33 Glucose 96 mg/dL (74-106) 12/02/22 05:33 Assessment/Plan: 1. Pain: Tylenol 1000mg PO Q8h, Tranadol 50mg PO Q6h PRN Pain 1-5, Oxycodone 2.5mg PO Q4h PRN Pain 6-10. Please continue to monitor for increased/decreased S/S pain, respiratory depression/oversedation with narcotic usage. -To date, the patient has not required any PRN pain medications. Patient's pain appears to be managed at this time. 2. Post-Op infection prophylaxis/ ID: Cefdinir 300mg PO BID thru , Doxycycline 100mg PO BID thru 12/06/22. Please continue to monitor for fever, S/S infection, incision site for inflammation/swelling/redness. 3. CAD s/p CABG/ A-flutter: Eliquis 2.5mg PO BID, Lopressor 25mg PO BID. Please continue to monitor BP (range 130-148/58-65), pulse (range 86-106), S/S bleeding/bruising, Hgb (last 8.3 on 12/02), Hct (last 24.8% on 12/02). 4. Hypothyroidism: Synthroid 50mcg PO Daily. Please continue to monitor thyroid function (TSH 4.97 from 08/13/22). Patient has not had a TSH drawn for >3 months and was elevated at last check. Please consider ordering a TSH to recheck levels to see if Synthroid dose needs adjusted, thank you. 5. Urinary Retention: Flomax 0.4mg PO Daily. Please continue to monitor for urinary retention, S/S UTI if retention continues. 6. Iron deficiency anemia: Ferrex 150mg PO Daily. Please continue to monitor Hgb (last 8.3 on 12/02), Hct (last 24.8% on 12/02), iron studies as clinically indicated. 7. General Wellness: Vitamin B12 1000mcg PO Daily thru 01/01/23, Vitamin D3 25mcg PO Daily, Ascorbic Acid 500mg PO Daily. 8. Skin Integrity: Calmoseptine topically BID, Nystatin powder topically BID. Please continue to monitor for skin irritation, redness, ulcer formations. 9. Bowel: Miralax 17g PO daily, Senna-S 1 tab PO BID, Magnesium Citrate 300mL PO Daily PRN. Please continue to monitor for increased/decreased constipation and/or diarrhea. -The patient has had 2 documented bowel movements since admission. Assessment/Plan for indications treated with psychotropic medications: The patient is not currently on any psychotropic medications at time of medication review Medical chart and medication regimen reviewed. The following medication irregularities or issues were identified: *1. Patient has not had a TSH drawn for >3 months and was elevated at last check. Please consider ordering a TSH to recheck levels to see if Synthroid dose needs adjusted, thank you Date Date of Note:: 12/02/22
[2022-12-02] MEDS: Ensure Plus High Protein 120 ML LIQUID PO ×3 (09:44→17:07)
[2022-12-02] MEDS: Doxycycline 100 MG CAPSULE PO ×2 (09:44→21:00)
[2022-12-02 09:45] VITALS: BP 108/75; PULSE 109
[2022-12-02] MEDS: Cyanocobalamin 500 MCG Tablet 1000 MCG PO (09:45)
[2022-12-02] MEDS: Nystatin Powder 15gm Bottle 1 APPLIC TOPICAL ×2 (09:45→21:00)
[2022-12-02] MEDS: Cefdinir 300 MG Capsule PO ×2 (09:45→21:00)
[2022-12-02] MEDS: Metoprolol Tartrate 25 MG Tablet PO ×2 (09:45→21:00)
[2022-12-02] MEDS: Cholecalciferol (VIT D3) 25 MCG TABLET (1,000 UNITS) PO (09:46)
[2022-12-02] MEDS: Ascorbic Acid 500 MG Tablet PO (09:48)
[2022-12-02] MEDS: Iron Polysaccharide Complex 150 MG CAPSULE PO (09:48)
[2022-12-02] MEDS: Tuberculin,Purif.prot.deriv. 50 TU/ML Vial 0.1 ML ID (09:50)
[2022-12-02] MEDS: Menthol/Lanolin/Calamine/Znox 113 GM Tube 1 APPLIC TOPICAL ×2 (09:55→21:01)
[2022-12-02] MEDS: traMADol 50 MG Tablet PO (12:04)
[2022-12-02 16:00] VITALS: BP 104/37; PULSE 84; RESP 18; TEMP 36.3; O2SAT 93
--- NOTE | 2022-12-02 16:05 | CASEMGMT ---
Social Work Met with patient to complete initial assessment. Introduced self and role. Verified contacts. Discussed code status - confirmed DNR-CCA, no intubation. Educated to [facility] insurance with NRD 12/08, noted copays begin day 21 at $196/day; continued stay is not guaranteed with each review. Pt's goal is to return home alone. Pt has granddaughter and neighbor for supports, but neighbor is out of town for the next 3 months. Unsure how involved gddtr can be at DC for physical needs. SW will continue to follow for DC planning. Teresa Whitman, QUALITY ASSURANCE REPRESENTATIVE ATTACHER
[2022-12-02] MEDS: Tamsulosin HCl 0.4 MG Capsule PO (17:07)
[2022-12-02 21:00] VITALS: BP 103/51; PULSE 86
[2022-12-02] MEDS: Senna/Docusate Sodium 1 Tablet PO (21:00)
--- NOTE | 2022-12-02 22:55 | NURSING ---
Bladder scan read for 395cc, voided 50cc, post void scan read 390cc. Mcgowan inserted w/ 380cc output. Pt tolerated well.
[2022-12-03 05:34] VITALS: PULSE 86; RESP 14; O2SAT 93
[2022-12-03] MEDS: Acetaminophen 500 MG Tablet 1000 MG PO ×3 (05:37→21:33)
[2022-12-03] MEDS: Levothyroxine 50 MCG Tablet PO (05:37)
[2022-12-03 05:49] LABS: Hematocrit 25.2 % (40-54); Hemoglobin 8.3 g/dL (13.0-16.5)
[2022-12-03 09:16] VITALS: BP 112/50; PULSE 89; RESP 16; TEMP 36.3; O2SAT 98
[2022-12-03] MEDS: Ensure Plus High Protein 120 ML LIQUID PO ×3 (09:21→17:42)
[2022-12-03] MEDS: Iron Polysaccharide Complex 150 MG CAPSULE PO (09:21)
[2022-12-03] MEDS: Doxycycline 100 MG CAPSULE PO ×2 (09:21→21:23)
[2022-12-03] MEDS: APIXABAN 2.5 MG TABLET (WCH) PO ×2 (09:21→21:24)
[2022-12-03 09:22] VITALS: PULSE 89
[2022-12-03] MEDS: Ascorbic Acid 500 MG Tablet PO (09:22)
[2022-12-03] MEDS: Menthol/Lanolin/Calamine/Znox 113 GM Tube 1 APPLIC TOPICAL ×2 (09:22→21:24)
[2022-12-03] MEDS: Metoprolol Tartrate 25 MG Tablet PO ×2 (09:22→21:23)
[2022-12-03] MEDS: Cholecalciferol (VIT D3) 25 MCG TABLET (1,000 UNITS) PO (09:22)
[2022-12-03] MEDS: Cyanocobalamin 500 MCG Tablet 1000 MCG PO (09:22)
[2022-12-03] MEDS: Cefdinir 300 MG Capsule PO ×2 (09:22→21:23)
[2022-12-03] MEDS: Nystatin Powder 15gm Bottle 1 APPLIC TOPICAL ×2 (09:23→21:24)
--- NOTE | 2022-12-03 12:45 | NURSING ---
Medical Chemist Note; Activity Asset: Cleo Hackett is independent in his choice of daily activities. He prefers to do his own thing, such as reading the newspaper, watching tv, spending time w/family and friends. He did state he welcomes visit from the arc air operator and therapy dog when available. His family will bring him items he may need or want as well he said. Staff will remind him of daily activities and respect his right to say no.
[2022-12-03] MEDS: Tamsulosin HCl 0.4 MG Capsule PO (17:42)
--- NOTE | 2022-12-03 17:50 | NS ---
Res food dislikes: lettuce. MST score = 6. Provided copy of daily specials/first choice menu w/ instructions on how to order.
[2022-12-03 21:23] VITALS: BP 104/83; PULSE 94
[2022-12-03] MEDS: Senna/Docusate Sodium 1 Tablet PO (21:25)
[2022-12-04] MEDS: traMADol 50 MG Tablet PO (00:09)
[2022-12-04] MEDS: Levothyroxine 50 MCG Tablet PO (05:24)
[2022-12-04] MEDS: Acetaminophen 500 MG Tablet 1000 MG PO ×3 (05:27→21:20)
[2022-12-04 07:00] LABS: Hematocrit 24.8 % (40-54); Hemoglobin 8.3 g/dL (13.0-16.5)
[2022-12-04] MEDS: Ascorbic Acid 500 MG Tablet PO (08:40)
[2022-12-04] MEDS: APIXABAN 2.5 MG TABLET (WCH) PO ×2 (08:40→21:21)
[2022-12-04] MEDS: Ensure Plus High Protein 120 ML LIQUID PO ×3 (08:40→17:35)
[2022-12-04 08:41] VITALS: BP 108/54; PULSE 84
[2022-12-04] MEDS: Cholecalciferol (VIT D3) 25 MCG TABLET (1,000 UNITS) PO (08:41)
[2022-12-04] MEDS: Cefdinir 300 MG Capsule PO ×2 (08:41→21:21)
[2022-12-04] MEDS: Iron Polysaccharide Complex 150 MG CAPSULE PO (08:41)
[2022-12-04] MEDS: Nystatin Powder 15gm Bottle 1 APPLIC TOPICAL ×2 (08:41→21:20)
[2022-12-04] MEDS: Cyanocobalamin 500 MCG Tablet 1000 MCG PO (08:41)
[2022-12-04] MEDS: Metoprolol Tartrate 25 MG Tablet PO ×2 (08:41→21:22)
[2022-12-04] MEDS: Menthol/Lanolin/Calamine/Znox 113 GM Tube 1 APPLIC TOPICAL ×2 (08:42→21:24)
[2022-12-04] MEDS: Doxycycline 100 MG CAPSULE PO ×2 (10:30→21:21)
[2022-12-04 16:00] VITALS: BP 123/56; PULSE 91; RESP 16; TEMP 36.2; O2SAT 94
[2022-12-04] MEDS: Tamsulosin HCl 0.4 MG Capsule PO (17:35)
[2022-12-04 21:15] VITALS: O2SAT 97
[2022-12-04 21:22] VITALS: BP 125/65; PULSE 87
[2022-12-05] MEDS: Levothyroxine 50 MCG Tablet PO (05:42)
[2022-12-05] MEDS: Acetaminophen 500 MG Tablet 1000 MG PO ×3 (05:42→23:12)
[2022-12-05 09:07] VITALS: BP 109/49; PULSE 80
[2022-12-05] MEDS: Ascorbic Acid 500 MG Tablet PO (09:07)
[2022-12-05] MEDS: Cholecalciferol (VIT D3) 25 MCG TABLET (1,000 UNITS) PO (09:07)
[2022-12-05] MEDS: Doxycycline 100 MG CAPSULE PO ×2 (09:07→23:13)
[2022-12-05] MEDS: Cefdinir 300 MG Capsule PO ×2 (09:07→23:15)
[2022-12-05] MEDS: Metoprolol Tartrate 25 MG Tablet PO ×2 (09:07→23:14)
[2022-12-05] MEDS: Cyanocobalamin 500 MCG Tablet 1000 MCG PO (09:07)
[2022-12-05] MEDS: APIXABAN 2.5 MG TABLET (WCH) PO ×2 (09:08→23:14)
[2022-12-05] MEDS: Ensure Plus High Protein 120 ML LIQUID PO ×3 (09:08→17:19)
[2022-12-05] MEDS: Iron Polysaccharide Complex 150 MG CAPSULE PO (09:08)
[2022-12-05] MEDS: Menthol/Lanolin/Calamine/Znox 113 GM Tube 1 APPLIC TOPICAL ×2 (09:11→23:18)
[2022-12-05] MEDS: Nystatin Powder 15gm Bottle 1 APPLIC TOPICAL ×2 (09:11→23:18)
[2022-12-05 14:12] VITALS: BP 136/46; PULSE 84; RESP 18; TEMP 35.9; O2SAT 98
[2022-12-05] MEDS: Tamsulosin HCl 0.4 MG Capsule PO (17:19)
[2022-12-05 23:14] VITALS: BP 110/57; PULSE 87
[2022-12-06] MEDS: Levothyroxine 50 MCG Tablet PO (05:23)
[2022-12-06] MEDS: Acetaminophen 500 MG Tablet 1000 MG PO ×3 (05:24→21:18)
[2022-12-06] MEDS: APIXABAN 2.5 MG TABLET (WCH) PO ×2 (09:19→21:18)
[2022-12-06] MEDS: Doxycycline 100 MG CAPSULE PO ×2 (09:19→21:18)
[2022-12-06] MEDS: Ensure Plus High Protein 120 ML LIQUID PO (09:19)
[2022-12-06 09:20] VITALS: BP 121/53; PULSE 84
[2022-12-06] MEDS: Metoprolol Tartrate 25 MG Tablet PO ×2 (09:20→21:19)
[2022-12-06] MEDS: Iron Polysaccharide Complex 150 MG CAPSULE PO (09:20)
[2022-12-06] MEDS: Nystatin Powder 15gm Bottle 1 APPLIC TOPICAL ×2 (09:22→21:19)
[2022-12-06] MEDS: Cyanocobalamin 500 MCG Tablet 1000 MCG PO (09:22)
[2022-12-06] MEDS: Cefdinir 300 MG Capsule PO ×2 (09:22→21:18)
[2022-12-06] MEDS: Cholecalciferol (VIT D3) 25 MCG TABLET (1,000 UNITS) PO (09:23)
[2022-12-06] MEDS: Ascorbic Acid 500 MG Tablet PO (09:23)
[2022-12-06] MEDS: Menthol/Lanolin/Calamine/Znox 113 GM Tube 1 APPLIC TOPICAL ×2 (09:26→21:19)
[2022-12-06 14:32] VITALS: BP 111/42; PULSE 70; RESP 14; TEMP 36.4; O2SAT 98
[2022-12-06 16:00] VITALS: BP 111/42; PULSE 70; RESP 14; TEMP 36.4; O2SAT 98
[2022-12-06] MEDS: Tamsulosin HCl 0.4 MG Capsule PO (18:00)
[2022-12-06 20:19] VITALS: PULSE 69; RESP 14; O2SAT 100
--- NOTE | 2022-12-06 20:46 | NURSING ---
Drsg to LLE changed per post op order. Minimal serosanguineous drainage noted. Superior incision x9 rachel intact. Mid incision x6 rachel intact. Inferior incision x4 rachel intact. DSD applied per order. Pt tolerated well.
[2022-12-06 21:19] VITALS: BP 124/50; PULSE 69
[2022-12-07] MEDS: Levothyroxine 50 MCG Tablet PO (06:16)
[2022-12-07] MEDS: Acetaminophen 500 MG Tablet 1000 MG PO ×3 (06:16→20:24)
[2022-12-07] MEDS: Ensure Plus High Protein 120 ML LIQUID PO (07:59)
[2022-12-07] MEDS: Nystatin Powder 15gm Bottle 1 APPLIC TOPICAL ×2 (09:30→20:26)
[2022-12-07] MEDS: Iron Polysaccharide Complex 150 MG CAPSULE PO (09:30)
[2022-12-07] MEDS: Cholecalciferol (VIT D3) 25 MCG TABLET (1,000 UNITS) PO (09:30)
[2022-12-07] MEDS: APIXABAN 2.5 MG TABLET (WCH) PO ×2 (09:31→20:24)
[2022-12-07] MEDS: Cyanocobalamin 500 MCG Tablet 1000 MCG PO (09:31)
[2022-12-07] MEDS: Ascorbic Acid 500 MG Tablet PO (09:31)
[2022-12-07] MEDS: Menthol/Lanolin/Calamine/Znox 113 GM Tube 1 APPLIC TOPICAL ×2 (09:33→20:27)
[2022-12-07 09:34] VITALS: BP 130/49; PULSE 80
[2022-12-07] MEDS: Metoprolol Tartrate 25 MG Tablet PO ×2 (09:34→20:23)
[2022-12-07 10:00] VITALS: RESP 16
[2022-12-07 12:49] VITALS: BMI 19.3
[2022-12-07 13:31] VITALS: BP 95/71; PULSE 77; RESP 20; TEMP 36.6; O2SAT 98
[2022-12-07] MEDS: Tamsulosin HCl 0.4 MG Capsule PO (16:27)
[2022-12-07 20:23] VITALS: BP 121/52; PULSE 68
[2022-12-08] MEDS: Acetaminophen 500 MG Tablet 1000 MG PO ×3 (06:27→20:36)
[2022-12-08] MEDS: Levothyroxine 50 MCG Tablet PO (06:27)
[2022-12-08] MEDS: Ensure Plus High Protein 120 ML LIQUID PO ×3 (07:50→17:37)
[2022-12-08] MEDS: Iron Polysaccharide Complex 150 MG CAPSULE PO (09:52)
[2022-12-08] MEDS: Menthol/Lanolin/Calamine/Znox 113 GM Tube 1 APPLIC TOPICAL ×2 (09:52→20:38)
[2022-12-08] MEDS: APIXABAN 2.5 MG TABLET (WCH) PO ×2 (09:52→20:37)
[2022-12-08 09:53] VITALS: PULSE 67
[2022-12-08] MEDS: Cyanocobalamin 500 MCG Tablet 1000 MCG PO (09:53)
[2022-12-08] MEDS: Nystatin Powder 15gm Bottle 1 APPLIC TOPICAL ×2 (09:53→20:38)
[2022-12-08] MEDS: Metoprolol Tartrate 25 MG Tablet PO ×2 (09:53→20:37)
[2022-12-08] MEDS: Ascorbic Acid 500 MG Tablet PO (09:53)
[2022-12-08] MEDS: Cholecalciferol (VIT D3) 25 MCG TABLET (1,000 UNITS) PO (09:54)
--- NOTE | 2022-12-08 10:02 | CASEMGMT ---
Addendum entered by Teresa Whitman 12/08/22 10:46: Insurance approved with NRD 12/13. SW updated pt and gdtr. Original Note: Social Work IDT met with patient, granddaughter and her for care plan meeting. Discussed patient's progress in PT/OT/SN. Educated to [facility] insurance with NRD 12/08, noted copays beginning on day 21-100 at $196/day; continued stay is not guaranteed with each review. Pt lives at home alone and the neighbor that assists, goes out of town for months at a time. IDT recommending additional support and physical assistance at home daily. SW inquired the plan for DC as pt is unable to be alone consistently. Pt and gdtr both unsure an alternative plan. Gddtr stated her home is split level and unable to have pt at her home. SW offered nonskilled COMMUTATOR INSPECTOR vs SNF and explained OOP cost. Pt does not have ample finances. Gdtr stated she is aware of pt's finances. SW offered to refer to [facility] for a Medicaid application to determine eligibility with goal for SNF placement. Pt and gdtr agreeable. BIMS () and PHQ-9 () completed for MDS assessment. Secure email sent to [facility] for referral. REGINALD will continue to follow. EVANGELISTA Ledesma
--- NOTE | 2022-12-08 11:27 | NURSING ---
Offered covid booster, education about vaccine provided. Patient refuses at this time.
--- NOTE | 2022-12-08 11:53 | NURSING ---
Keg Inspector Note; MDS Complete
--- NOTE | 2022-12-08 14:27 | CHAPLAIN ---
Type of Pastoral Visit _x__ Initial Visit ___ Follow-up Visit ___ On-call Visit ___ General Patient Visit ___ Spiritual Assessment ___ Family Conference ___ Bereavement ___ Rapid Response ___ Code Blue ___ Other (describe below) Pastoral Care Referral From _x__ Patient ___ Family ___ Nurse ___ Physician ___ Assembler Radio And Electrical ___ Swimming Pool Service Technician ___ Other (describe below) Sacrament/Intervention _x__ Active listening ___ Anointing ___ Yazdanism ___ Bereavement ___ Communion _x__ Amberly exploration ___ _x__ Life review _x__ Prayer ___ Reconciliation ___ Sacrament of Sick _x__ Supportive presence ___ Wedding ___ Other (describe below) Pastoral Comments patient reports feeling fine and otherwise not sure about his situation other than therapy can be hard at times; 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
[2022-12-08 14:35] VITALS: BP 140/51; PULSE 70; RESP 14; TEMP 36.1; O2SAT 97
[2022-12-08] MEDS: Tamsulosin HCl 0.4 MG Capsule PO (17:37)
[2022-12-08] MEDS: Mirtazapine 15 MG Tablet 7.5 MG PO (20:36)
[2022-12-08 20:37] VITALS: PULSE 80
[2022-12-08] MEDS: Senna/Docusate Sodium 1 Tablet PO (20:37)
[2022-12-09] MEDS: Levothyroxine 50 MCG Tablet PO (05:09)
[2022-12-09] MEDS: Acetaminophen 500 MG Tablet 1000 MG PO ×3 (05:10→20:57)
[2022-12-09 05:54] LABS: Absolute Lymphocyte Count 4.03 X10^3/uL (0.83-4.51); Absolute Neutrophil Count 4.1 X10^3/uL (2.0-7.7); Basophil# 0.04 X10^3/uL; Basophil% 0.4 % (0-1); Eosinophils% 4.2 % (0-5); Hematocrit 25.4 % (40-54); Hemoglobin 8.3 g/dL (13.0-16.5); Lymphocyte # 4.03 X10^3/ul (0.83-4.51); Lymphocyte % 42.6 % (19-41); Mean Corp Hgb Conc 32.7 g/dL (32-36); Mean Corpuscular Hgb 35.6 pg (27.0-32.0); Mean Platelet Vol. 8.8 fl (6.2-12.0); Monocyte# 0.81 X10^3/uL; Monocyte% 8.6 % (0-10); NRBC Flagged by Analyzer 0 % (0-5); Neutrophil % 43.5 % (47-70); POSITIVE MORPHOLOGY YES; Platelet Count 595 K/mm3 (150-450); RBC Distribution Width CV 18.7 % (11.6-14.6); RBC Distribution Width SD 74.3 fl (35.1-43.9); Red Blood Count 2.33 M/mm3 (4.6-6.2); White Blood Count 9.5 K/mm3 (4.4-11.0)
[2022-12-09 05:56] LABS: Differential Indicated SCAN CRITERIA MET
[2022-12-09 06:25] LABS: Anion Gap 3 (5-15); BUN 16 mg/dL (7-18); BUN/Creat Ratio 22.1 RATIO (10-20); Calcium,Total 8.4 mg/dL (8.5-10.1); Chloride 110 mmol/L (98-107); Creatinine, Serum 0.72 mg/dL (0.70-1.30); EST Glomerular Filtration Rate 109 mL/min (>60); Est Glom Filt Rate - Afr Amer 132 mL/min (>60); Estimated Creatinine Clearance 44.09 ml/min; Glucose 104 mg/dL (74-106); Potassium 3.5 mmol/L (3.5-5.1); Sodium Level 141 mmol/L (136-145)
[2022-12-09 06:31] LABS: Anisocytosis 2+; Macrocytosis 2+; Platelet Estimate MOD INC (ADEQ)
[2022-12-09 06:32] LABS: Hypochromasia 1+
[2022-12-09] MEDS: Menthol/Lanolin/Calamine/Znox 113 GM Tube 1 APPLIC TOPICAL ×2 (08:10→21:00)
[2022-12-09] MEDS: Ensure Plus High Protein 120 ML LIQUID PO ×3 (08:10→17:00)
[2022-12-09 10:27] VITALS: BP 111/81; PULSE 89
[2022-12-09] MEDS: Cyanocobalamin 500 MCG Tablet 1000 MCG PO (10:27)
[2022-12-09] MEDS: Ascorbic Acid 500 MG Tablet PO (10:27)
[2022-12-09] MEDS: Metoprolol Tartrate 25 MG Tablet PO ×2 (10:27→20:57)
[2022-12-09] MEDS: Iron Polysaccharide Complex 150 MG CAPSULE PO (10:27)
[2022-12-09] MEDS: APIXABAN 2.5 MG TABLET (WCH) PO ×2 (10:27→20:57)
[2022-12-09] MEDS: Cholecalciferol (VIT D3) 25 MCG TABLET (1,000 UNITS) PO (10:27)
[2022-12-09] MEDS: Nystatin Powder 15gm Bottle 1 APPLIC TOPICAL ×2 (10:28→21:00)
[2022-12-09] MEDS: Tuberculin,Purif.prot.deriv. 50 TU/ML Vial 0.1 ML ID (10:35)
[2022-12-09 14:34] VITALS: BP 122/51; PULSE 68; RESP 17; TEMP 36.3; O2SAT 97
[2022-12-09] MEDS: Tamsulosin HCl 0.4 MG Capsule PO (17:00)
[2022-12-09 20:57] VITALS: BP 133/51; PULSE 70
[2022-12-09] MEDS: Mirtazapine 15 MG Tablet 7.5 MG PO (20:57)
[2022-12-10] MEDS: Acetaminophen 500 MG Tablet 1000 MG PO ×3 (05:10→21:50)
[2022-12-10] MEDS: Levothyroxine 50 MCG Tablet PO (05:10)
[2022-12-10] MEDS: Menthol/Lanolin/Calamine/Znox 113 GM Tube 1 APPLIC TOPICAL ×2 (08:38→21:51)
[2022-12-10] MEDS: Ensure Plus High Protein 120 ML LIQUID PO ×3 (08:38→16:44)
[2022-12-10 09:30] VITALS: PULSE 62; RESP 16
[2022-12-10] MEDS: Cyanocobalamin 500 MCG Tablet 1000 MCG PO (10:33)
[2022-12-10] MEDS: Ascorbic Acid 500 MG Tablet PO (10:33)
[2022-12-10] MEDS: Cholecalciferol (VIT D3) 25 MCG TABLET (1,000 UNITS) PO (10:33)
[2022-12-10] MEDS: Iron Polysaccharide Complex 150 MG CAPSULE PO (10:33)
[2022-12-10] MEDS: APIXABAN 2.5 MG TABLET (WCH) PO ×2 (10:34→21:50)
[2022-12-10] MEDS: Nystatin Powder 15gm Bottle 1 APPLIC TOPICAL ×2 (10:34→21:51)
[2022-12-10 10:35] VITALS: BP 131/42; PULSE 90
[2022-12-10] MEDS: Metoprolol Tartrate 25 MG Tablet PO ×2 (10:35→21:55)
[2022-12-10 14:16] VITALS: BP 103/54; PULSE 75; RESP 16; TEMP 36.1; O2SAT 94
[2022-12-10] MEDS: Tamsulosin HCl 0.4 MG Capsule PO (16:43)
[2022-12-10] MEDS: Mirtazapine 15 MG Tablet 7.5 MG PO (21:50)
[2022-12-10 21:55] VITALS: BP 121/51; PULSE 88
[2022-12-11] MEDS: Levothyroxine 50 MCG Tablet PO (05:29)
[2022-12-11] MEDS: Acetaminophen 500 MG Tablet 1000 MG PO ×3 (05:31→20:44)
[2022-12-11 08:37] LABS: Hematocrit 28.7 % (40-54); Hemoglobin 9.2 g/dL (13.0-16.5)
[2022-12-11] MEDS: Ensure Plus High Protein 120 ML LIQUID PO (09:01)
[2022-12-11] MEDS: Ascorbic Acid 500 MG Tablet PO (09:02)
[2022-12-11] MEDS: Menthol/Lanolin/Calamine/Znox 113 GM Tube 1 APPLIC TOPICAL ×2 (09:02→20:40)
[2022-12-11] MEDS: Cyanocobalamin 500 MCG Tablet 1000 MCG PO (09:03)
[2022-12-11] MEDS: Cholecalciferol (VIT D3) 25 MCG TABLET (1,000 UNITS) PO (09:03)
[2022-12-11] MEDS: Iron Polysaccharide Complex 150 MG CAPSULE PO (09:03)
[2022-12-11] MEDS: APIXABAN 2.5 MG TABLET (WCH) PO ×2 (09:07→20:43)
[2022-12-11] MEDS: Nystatin Powder 15gm Bottle 1 APPLIC TOPICAL ×2 (09:07→20:42)
[2022-12-11 09:08] VITALS: BP 139/49; PULSE 90
[2022-12-11] MEDS: Metoprolol Tartrate 25 MG Tablet PO ×2 (09:08→20:43)
[2022-12-11 14:46] VITALS: BP 123/53; PULSE 94; RESP 19; TEMP 36.3; O2SAT 97
[2022-12-11] MEDS: Tamsulosin HCl 0.4 MG Capsule PO (17:52)
[2022-12-11] MEDS: Calcium Carbonate 500 MG Tablet 1000 MG PO (18:18)
[2022-12-11 20:43] VITALS: BP 137/49; PULSE 77
[2022-12-11] MEDS: Mirtazapine 15 MG Tablet 7.5 MG PO (20:44)
[2022-12-11 20:53] VITALS: PULSE 77; RESP 16; O2SAT 92
[2022-12-12] MEDS: Acetaminophen 500 MG Tablet 1000 MG PO ×3 (05:49→20:56)
[2022-12-12] MEDS: Levothyroxine 50 MCG Tablet PO (05:49)
[2022-12-12 08:57] VITALS: BP 115/56; PULSE 67; RESP 15; TEMP 36.7; O2SAT 94
[2022-12-12 09:02] VITALS: PULSE 67
[2022-12-12] MEDS: Nystatin Powder 15gm Bottle 1 APPLIC TOPICAL ×2 (09:02→21:02)
[2022-12-12] MEDS: Ensure Plus High Protein 120 ML LIQUID PO ×2 (09:02→17:32)
[2022-12-12] MEDS: APIXABAN 2.5 MG TABLET (WCH) PO ×2 (09:02→20:57)
[2022-12-12] MEDS: Iron Polysaccharide Complex 150 MG CAPSULE PO (09:02)
[2022-12-12] MEDS: Metoprolol Tartrate 25 MG Tablet PO ×2 (09:02→20:56)
[2022-12-12] MEDS: Menthol/Lanolin/Calamine/Znox 113 GM Tube 1 APPLIC TOPICAL ×2 (09:02→21:02)
[2022-12-12] MEDS: Cyanocobalamin 500 MCG Tablet 1000 MCG PO (09:03)
[2022-12-12] MEDS: Ascorbic Acid 500 MG Tablet PO (09:03)
[2022-12-12] MEDS: Cholecalciferol (VIT D3) 25 MCG TABLET (1,000 UNITS) PO (09:03)
[2022-12-12] MEDS: Tamsulosin HCl 0.4 MG Capsule PO (17:33)
[2022-12-12 20:56] VITALS: BP 127/55; PULSE 74
[2022-12-12] MEDS: Mirtazapine 15 MG Tablet 7.5 MG PO (20:57)
[2022-12-12 22:00] VITALS: PULSE 79; RESP 16; O2SAT 95
[2022-12-13] MEDS: Calcium Carbonate 500 MG Tablet 1000 MG PO ×2 (00:35→18:14)
[2022-12-13] MEDS: Acetaminophen 500 MG Tablet 1000 MG PO ×3 (04:49→22:02)
[2022-12-13] MEDS: Levothyroxine 50 MCG Tablet PO (04:49)
[2022-12-13 04:54] VITALS: PULSE 83; RESP 16; O2SAT 94
[2022-12-13 09:05] VITALS: BP 123/98; PULSE 76
[2022-12-13] MEDS: Metoprolol Tartrate 25 MG Tablet PO ×2 (09:05→22:02)
[2022-12-13] MEDS: Iron Polysaccharide Complex 150 MG CAPSULE PO (09:05)
[2022-12-13] MEDS: Ensure Plus High Protein 120 ML LIQUID PO ×3 (09:05→17:30)
[2022-12-13] MEDS: APIXABAN 2.5 MG TABLET (WCH) PO ×2 (09:05→22:02)
[2022-12-13] MEDS: Ascorbic Acid 500 MG Tablet PO (09:05)
[2022-12-13] MEDS: Cyanocobalamin 500 MCG Tablet 1000 MCG PO (09:05)
[2022-12-13] MEDS: Cholecalciferol (VIT D3) 25 MCG TABLET (1,000 UNITS) PO (09:05)
[2022-12-13] MEDS: Menthol/Lanolin/Calamine/Znox 113 GM Tube 1 APPLIC TOPICAL ×2 (09:07→22:03)
[2022-12-13] MEDS: Nystatin Powder 15gm Bottle 1 APPLIC TOPICAL ×2 (09:07→22:03)
[2022-12-13 11:47] VITALS: BP 123/42; PULSE 66; RESP 16; TEMP 35.9; O2SAT 92
--- NOTE | 2022-12-13 12:17 | CASEMGMT ---
Addendum entered by Teresa Whitman 12/13/22 16:16: Received return call from verena stating she spoke with a rep from [facility], named Saskia, whom stated the patient has aide services available for 35 hours a week, but that needs approval first, and requested this worker provide that approval. SW attempted to ask clarifying questions but renudtr unsure. Renudtr provided this worker with Saskia's phone number to follow up. Renudtr also stated she would like to appeal the insurance decision. SW reeducated to appeal rights. Gddtr revisited Medicaid qualifications as she does not want the pt to have his house taken. SW clarified when and how the house would be subject to estate recovery, which was a different understanding than the gddr had. REGINALD phoned Saskia at [facility] and Saskia clarified it is skilled HHC, not an aide program that requires precert and up to 35 hours a week of skilled disciplines. REGINALD phoned gddtr to update on above. Gddtr expressed understanding, and provided the case number for appeal. [id number]. Gddtr stated so everything is on hold now, right. SW denied and reeducated gddtr the DC plans need to continue so if the pt loses the appeal and has to DC 12/16, plans are in place. Revisited HHC vs SNF. Gddtr remained adamant on taking pt home, denied needing FWW, stating she bought one for him, she just wants the C. SW offered list with quality and resource data, but gddtr denied and this worker agreed to coordinate an accepting agency. Gddtr appreciative. Plan: DC home alone 12/16, pending appeal, [facility] PT/OT/SN/PATEL/REGINALD. No DME. Addendum entered by Teresa Whitman 12/13/22 14:49: Received return call from verena. She was distraught with the DC plan. Explaining pt worked his whole life and does not want to give up everything for Medicaid. Renudtr stated, what are you suggesting here, a senior living? REGINALD confirmed. Gddtr remained upset and unsure of the plan, stating she needs to talk to her and will call this worker back. Will continue to follow. Original Note: Social Work Insurance issued LCD 12/15, DC 12/16. SW left voicemail with gddtr. Will await return call. Teresa Whitman FORCE VARIATION EQUIPMENT TENDER SAUSAGE LINKER
--- NOTE | 2022-12-13 12:29 | CASEMGMT ---
Social Work SW received follow up from [facility] and gddtr denied completing Medicaid application stating, she has another plan and doesn't want to give out finances right now. Teresa Whitman, BURLAP SPREADER SHIPYARD PAINTING SUPERVISOR
[2022-12-13] MEDS: Tamsulosin HCl 0.4 MG Capsule PO (17:30)
[2022-12-13 18:46] LABS: Mucous, Urine 0 SEEN /hpf (<or=2+); Squamous Epithelial Cells - UA 0 SEEN /hpf (0-5)
[2022-12-13 18:52] LABS: Color, Urine Yellow (Yellow); Glucose, Dipstick Normal (Normal); Ketone-Dipstick Negative (Negative); Leukocyte Esterase-Dipstick 500 /ul (Negative); Nitrite-Dipstick Positive (Negative); Occult Blood-Urine 250 /ul (Negative); Protein-Dipstick 100 mg/dl (Negative); Urine Bilirubin Dipstick Negative (Negative); Urine Clarity Cloudy (Clear); Urine Urobilinogen Normal (Normal)
[2022-12-13 18:59] LABS: Bacteria 2+ /hpf (None Seen); Red Blood Cells-Urine 5-10 SEEN /hpf (0-5); White Blood Cells 50-100 SEEN /hpf (0-5)
[2022-12-13 19:00] LABS: Calcium Oxalate Crystals Ur 1+ /hpf (<or=2+)
--- NOTE | 2022-12-13 20:48 | DS.PCM_ITS ---
Providers Date of Admission: 12/01/22 Primary Care Physician: Dr. More Salazar DO Reason For Visit: L HIP FRACTURE Diagnosis Discharge Diagnosis (1) Debility: Status: Acute Code(s): R53.81 - Other malaise (2) Closed left hip fracture: Status: Acute Code(s): S72.002A - Fracture of unspecified part of neck of left femur, initial encounter for closed fracture (3) Atrial flutter: Status: Acute Code(s): I48.92 - Unspecified atrial flutter (4) Coronary artery disease: Status: Acute Code(s): I25.10 - Atherosclerotic heart disease of [place] coronary artery without angina pectoris (5) Hypertension: Status: Chronic Code(s): I10 - Essential (primary) hypertension (6) Hyperlipidemia: Status: Acute Code(s): E78.5 - Hyperlipidemia, unspecified (7) Hypothyroidism: Status: Acute Code(s): E03.9 - Hypothyroidism, unspecified Plan 87 year old male with below past medical history hospitalized for left hip fracture, underwent left hip cephalomedullary nail fixation 11/29/2022, complicated by atrial flutter, admitted to TCU with debility, here for rehabilitation, strengthening, prior to discharge home with granddaughter. * Debility - PT/OT. * Pain - Tylenol 1000mg q8, Tramadol 50mg q6h prn pain (1-5), Oxycodone 2.5mg q4h prn pain (6-10). * Bowel - Miralax 17gm daily, senna/colace 1 tablet bid, Magnesium citrate 300ml daily prn. * Adult immunization - Administer pneumonia vaccine, covid19 vaccine, flu vaccine as appropriate. * DVT prophylaxis - on Eliquis. * Atrial flutter - Metoprolol 25mg bid, Eliquis 2.5mg bid. * Coronary artery disease s/p CABG - Metoprolol 25mg bid, Eliquis 2.5mg bid. * Infectious Disease - Cefdinir 300mg bid thru 12/06/2022, Doxycycline 100mg bid thru 12/06/2022. * B12 deficiency - B12 1000mcg daily thru 01/01/2023. * Nutrition - Ensure Plus 120ml po tid. * Vitamin D deficiency - D3 1000IU daily. * Iron deficiency anemia - Ferrous sulfate 325mg every other day. * Hypothyroidism - Levothyroxine 50mcg daily. * Skin irritation - Calmoseptine topical bid. * Tinea Corporis - Nystatin powder topical bid. Medications at Discharge Home Medications levothyroxine 50 mcg tablet 50 mcg PO DAILY thyroid 07/22/22 metoprolol tartrate 25 mg tablet 25 mg PO BID bp 07/22/22 cholecalciferol (vitamin D3) 1,250 mcg (50,000 unit) capsule 50,000 unit PO .Every other week supplement 08/26/22 cyanocobalamin (vitamin B-12) 1,000 mcg capsule 1,000 mcg PO DAILY supplement 12/01/22 acetaminophen 500 mg tablet 1,000 mg (2 x 500 mg) PO Q8 #0 tabs 12/13/22 apixaban 5 mg tablet (Eliquis) 2.5 mg (1/2 x 5 mg) PO BID 30 days #30 tabs 12/13/22 ascorbic acid (vitamin C) 500 mg tablet 500 mg PO 1000 #0 tabs 12/13/22 ciprofloxacin HCl 250 mg tablet 250 mg PO BID 5 days #10 tabs 12/13/22 mirtazapine 15 mg tablet 7.5 mg (1/2 x 15 mg) PO QHS 30 days #15 tabs 12/13/22 polysaccharide iron complex 150 mg iron capsule (Ferrex) 150 mg PO DAILY 30 days #30 caps 12/13/22 Hospital Course Operations - (Left hip cephalomedullary nail. ) Procedures None Summary of Care Provided Minutes Spent on Discharge: 35 Hospital Course: 87 year old male with below past medical history hospitalized for left hip fracture, underwent left hip cephalomedullary nail fixation 11/29/2022, complicated by atrial flutter, admitted to TCU with debility, here for rehabilitation, strengthening, prior to discharge home with granddaughter. 12/13/2022 Urinalysis consistent with urinary tract infection, urine culture pending, rx Cipro 250mg bid x 7 days, will discharge home on cipro. Discharge home alone 12/16/2022, pending appeal, Home Health Care PT/OT/SN/PATEL/SN, no DME. Physical Exam Const alert General Appearance: cooperative HEENT normocephalic Eyes PERRL and EOMs intact bilaterally Neck supple, no JVD and no carotid bruits Resp normal respiratory effort, normal air movement and clear to auscultation bilaterally Cardio regular rate and regular rhythm GI normal to inspection, nondistended, normoactive bowel sounds, non-tender and non-distended Extremity normal capillary refill General Extremity: Negative for edema Skin no rashes or lesions noted General Skin Exam: no breakdown Psych affect normal Appearance: appropriate Weight / BMI Weight Weight: 61.054 kg Body Mass Index (BMI) 19.3 ABG / Lab / Microbiology Data 12/11/22 08:12 12/09/22 05:28 Laboratory: Laboratory Results - last 24 hr 12/13/22 18:00: Urine Color Yellow, Urine Clarity Cloudy, Urine pH 7.0, Ur Specific Dow 1.010, Urine Protein 100 H, Urine Glucose (UA) Normal, Urine Ketones Negative, Urine Occult Blood 250 H, Urine Nitrite Positive H, Urine Bilirubin Negative, Urine Urobilinogen Normal, Ur Leukocyte Esterase 500 H, Urine RBC 5-10 SEEN, Urine WBC 50-100 SEEN, Ur Squamous Epith Cells 0 SEEN, Calcium Oxalate Crystal 1+, Urine Bacteria 2+, Urine Mucus 0 SEEN D/C Instructions Discharge Diet: No restrictions Discharge Activity: Return to Normal Activity, May Shower and Use Walker Weight Bearing Status: Weight bearing as tolerated Call your doctor if you observe: Fever of 101 or Higher, Inability to urinate, Inability to have a bowel movement, Shortness of breath, Dizziness, Fainting spells, Swelling in the ankles, Chest pain and Uncontrolled pain Additional Instructions: Discharge home alone 12/16/2022, pending appeal, Home Health Care PT/OT/SN/PATEL/SN, no DME. Please Follow Up With: Ramsey Meza Meaningful Use Info Meaningful Use Diagnoses (Choose all that apply): None applicable Discharge Plan Admission Admit Date/Time: 12/01/22 14:10 Primary Reason for Your Visit: Debility. Attending Provider: Jorge Burt Chi Primary Care Provider: More Salazar Instructions Additional Instructions / Restrictions: Discharge home alone 12/16/2022, pending appeal, Home Health Care PT/OT/SN/PATEL/SN, no DME. Discharge Orders/Prescriptions Prescriptions: New acetaminophen 500 mg Tablet 1,000 mg PO Q8 Qty: 0 0RF Eliquis 5 mg Tablet 2.5 mg PO BID 30 Days Qty: 30 0RF ascorbic acid (vitamin C) 500 mg Tablet 500 mg PO 1000 Qty: 0 0RF ciprofloxacin HCl 250 mg Tablet 250 mg PO BID 5 Days Qty: 10 0RF polysaccharide iron complex [Ferrex 150] 150 mg iron Capsule 150 mg PO DAILY 30 Days Qty: 30 0RF mirtazapine 15 mg Tablet 7.5 mg PO QHS 30 Days Qty: 15 0RF Continued levothyroxine 50 mcg tablet 50 mcg PO DAILY metoprolol tartrate 25 mg tablet 25 mg PO BID cholecalciferol (vitamin D3) 1,250 mcg (50,000 unit) capsule 50,000 unit PO .Every other week cyanocobalamin (vitamin B-12) 1,000 mcg capsule 1,000 mcg PO DAILY Discontinued amlodipine 5 mg tablet 5 mg PO DAILY Hold Instructions: MD Ordered aspirin 81 mg tablet,delayed release (DR/EC) 81 mg PO DAILY Patient Comments: STOP 3 DAYS PRIOR mupirocin 2 % ointment 1 applic topical DAILY Qty: 22 2RF Hold Instructions: no longer ordered tamsulosin 0.4 mg Capsule 0.4 mg PO DAILY 7 Days Qty: 7 0RF Hold Instructions: not ordered acetaminophen 325 mg capsule 650 mg PO Q4H PRN (Reason: pain (scale score 1-3)) hydrocodone-acetaminophen 5-325 mg tablet 1 tab PO Q6H PRN (Reason: pain (scale score 4-6)) Rx Instructions: Pain 4-10 apixaban 2.5 mg tablet 2.5 mg PO BID cefdinir 300 mg capsule 300 mg PO BID doxycycline monohydrate 100 mg capsule 100 mg PO BID ferrous sulfate 325 mg (65 mg iron) tablet 325 mg PO QODAY polyethylene glycol 3350 [Miralax] 17 gram powder in packet 17 g PO DAILY Referrals / Follow Up: More Salazar DO [Primary Care Provider] - Disposition Disposition (needs filled in before D/C Order can be placed): Home Health Service
[2022-12-13 22:02] VITALS: BP 132/55; PULSE 86
[2022-12-13] MEDS: Ciprofloxacin 250 MG Tablet PO (22:02)
[2022-12-13] MEDS: Mirtazapine 15 MG Tablet 7.5 MG PO (22:03)
[2022-12-14] MEDS: Acetaminophen 500 MG Tablet 1000 MG PO ×3 (05:32→23:12)
[2022-12-14] MEDS: Levothyroxine 50 MCG Tablet PO (05:32)
[2022-12-14 05:37] VITALS: PULSE 78; RESP 18; O2SAT 95
[2022-12-14 08:24] VITALS: BP 114/55; PULSE 74; RESP 17; TEMP 36.5; O2SAT 99
[2022-12-14] MEDS: Ensure Plus High Protein 120 ML LIQUID PO ×3 (08:27→18:38)
[2022-12-14 08:28] VITALS: PULSE 74
[2022-12-14] MEDS: Ciprofloxacin 250 MG Tablet PO ×2 (08:28→23:15)
[2022-12-14] MEDS: Metoprolol Tartrate 25 MG Tablet PO ×2 (08:28→23:13)
[2022-12-14] MEDS: Nystatin Powder 15gm Bottle 1 APPLIC TOPICAL (08:28)
[2022-12-14] MEDS: APIXABAN 2.5 MG TABLET (WCH) PO ×2 (08:28→23:13)
[2022-12-14] MEDS: Iron Polysaccharide Complex 150 MG CAPSULE PO (08:28)
[2022-12-14] MEDS: Menthol/Lanolin/Calamine/Znox 113 GM Tube 1 APPLIC TOPICAL ×2 (08:28→23:17)
[2022-12-14] MEDS: Cyanocobalamin 500 MCG Tablet 1000 MCG PO (08:29)
[2022-12-14] MEDS: Ascorbic Acid 500 MG Tablet PO (08:29)
[2022-12-14] MEDS: Cholecalciferol (VIT D3) 25 MCG TABLET (1,000 UNITS) PO (08:29)
--- NOTE | 2022-12-14 08:38 | NURSING ---
Mcgowan Catheter removed at this time. Urine cloudy, yellow in color. Patient tolerated task well. Will continue to monitor for retention.
--- NOTE | 2022-12-14 09:37 | MDS.RN ---
Information for the mds was obtained from review of the clinical record, interview of resident, staff, and direct observation of resident's care.
[2022-12-14 15:07] VITALS: BMI 19.5
--- NOTE | 2022-12-14 17:01 | NURSING ---
Straight cathed patient per policy. Patient tolerated task well. Will continue voiding trial.
[2022-12-14] MEDS: Tamsulosin HCl 0.4 MG Capsule PO (18:38)
[2022-12-14] MEDS: Calcium Carbonate 500 MG Tablet PO (18:38)
--- NOTE | 2022-12-14 19:50 | NURSING ---
Granddaughter, Uzma, notified of a patient on unit testing positive for COVID.
[2022-12-14] MEDS: Mirtazapine 15 MG Tablet 7.5 MG PO (23:12)
[2022-12-14 23:13] VITALS: BP 137/45; PULSE 74
[2022-12-15] MEDS: Levothyroxine 50 MCG Tablet PO (06:11)
[2022-12-15] MEDS: Acetaminophen 500 MG Tablet 1000 MG PO ×3 (06:11→21:32)
[2022-12-15 06:45] VITALS: PULSE 66; RESP 16; O2SAT 93
[2022-12-15] MEDS: Ensure Plus High Protein 120 ML LIQUID PO ×3 (08:25→17:16)
[2022-12-15] MEDS: Iron Polysaccharide Complex 150 MG CAPSULE PO (08:26)
[2022-12-15] MEDS: Ascorbic Acid 500 MG Tablet PO (08:26)
[2022-12-15] MEDS: Cyanocobalamin 500 MCG Tablet 1000 MCG PO (08:26)
[2022-12-15] MEDS: Ciprofloxacin 250 MG Tablet PO ×2 (08:26→21:33)
[2022-12-15 08:27] VITALS: BP 130/44; PULSE 68
[2022-12-15] MEDS: Cholecalciferol (VIT D3) 25 MCG TABLET (1,000 UNITS) PO (08:27)
[2022-12-15] MEDS: APIXABAN 2.5 MG TABLET (WCH) PO ×2 (08:27→21:32)
[2022-12-15] MEDS: Menthol/Lanolin/Calamine/Znox 113 GM Tube 1 APPLIC TOPICAL ×2 (08:27→21:34)
[2022-12-15] MEDS: Metoprolol Tartrate 25 MG Tablet PO ×2 (08:27→21:33)
[2022-12-15] MEDS: Nystatin Powder 15gm Bottle 1 APPLIC TOPICAL ×2 (08:30→21:31)
[2022-12-15 08:41] VITALS: BP 130/44; PULSE 68; RESP 16; TEMP 36.5; O2SAT 99
[2022-12-15 08:43] VITALS: PULSE 68; RESP 16; O2SAT 99
--- NOTE | 2022-12-15 11:17 | NURSING ---
Dr Burt updated regarding post void residuals, pt voiding small amts but PVR elevated, new order for figueroa insertion today and f/u with Dr Amos urologist after DC.
--- NOTE | 2022-12-15 11:23 | NURSING ---
message left for pt surgeon regarding staple removal d/t pt being dc'd tomorrow and pt unable to make f/u appt tomorrow as scheduled per family
--- NOTE | 2022-12-15 11:46 | NURSING ---
pt refusing figueroa catheter at this time. States I had this happen before, once I got home I was going fine Educated pt regarding risk of urinary tract infection d/t not emptying and pt still wants to hold off for now and see how rest of day goes. Will let this nurse know before end of shift. will continue to monitor.
--- NOTE | 2022-12-15 14:42 | NURSING ---
Addendum entered by Staci Lolita Arnol 12/15/22 15:26: dr Burt notified, wants pt to be aware that he will end up back in the ER and to be sure he has a ride. Mellisa also spoke with pt granddaughter and she is ok with what pt wants. She was educated on what can happen since pt unable to empty bladder fully. pt does not want to speak with DR Burt either. Original Note: YULIANA Sanchez charge in educating pt on post void residual and >600cc urine after voiding small amts of 50cc or less each void. pt continues to refuse figueroa, will allow staff to st cath now. states I trust in the lord pt resting in bed. will update Dr Burt.
--- NOTE | 2022-12-15 15:21 | NURSING ---
pt straight cathed for 500cc straw colored urine w/out odor. pt resting in bed supine, call light in reach. pt states that feels rubber grinder, I just dont want to go home with a catheter
--- NOTE | 2022-12-15 16:24 | CASEMGMT ---
Addendum entered by Teresa Whitman 12/16/22 12:19: Pt is located in [facility], per APS. REGINALD to place referral. REGINALD collaborated with Jack Prizer whom suggested to reach out to [facility] for [facility] list and [facility] for possible staffing/insurance contract assistance with HHC agency. SW emailed Rep and received list. This worker already exhausted that list. REGINALD spoke with Lisa at [facility] whom accepted the referral to assist. I to contact gddtr if [facility] agency is secured. Addendum entered by Teresa Whitman 12/16/22 08:31: [facility] is at max capacity but has placed pt on waitlist (he is third). SW left voicemail with gddtr. Due to no services available for pt in the home and recommendations for / care at [place], this worker phoned referral to [facility]. Left voicemail for Benito at [facility], requesting call back. Original Note: Social Work SW referred to approx. 15 [facility] agencies, including [facility], [facility], [facility], [facility], and either the agency is OON, out of service area or cannot staff the referral. SW phoned gddtr to update and offer SNF or OP. Gddtr denied and wants help at home. Gddtr noted pt had [facility] his previous hospital visit but could not remember the name. SW review history and pt was accepted by [facility]. REGINALD stated [facility] could not staff the referral. REGINALD noted a [facility] referral was made previously as well, though gddtr does not recall, but agreeable to referral. SW sent referral to [facility] for some nursing assistance. Teresa Whitman. LICENSING OFFICER [employer]
[2022-12-15] MEDS: Tamsulosin HCl 0.4 MG Capsule PO (17:15)
[2022-12-15] MEDS: Mirtazapine 15 MG Tablet 7.5 MG PO (21:31)
[2022-12-15 21:33] VITALS: BP 125/50; PULSE 76
[2022-12-16] MEDS: Levothyroxine 50 MCG Tablet PO (05:23)
[2022-12-16] MEDS: Acetaminophen 500 MG Tablet 1000 MG PO (05:23)
[2022-12-16 05:59] LABS: Absolute Lymphocyte Count 3.37 X10^3/uL (0.83-4.51); Absolute Neutrophil Count 3.2 X10^3/uL (2.0-7.7); Basophil# 0.06 X10^3/uL; Basophil% 0.8 % (0-1); Eosinophil# 0.23 X10^3/uL; Eosinophils% 3.1 % (0-5); Hematocrit 30.5 % (40-54); Hemoglobin 9.6 g/dL (13.0-16.5); Lymphocyte # 3.37 X10^3/ul (0.83-4.51); Lymphocyte % 45.5 % (19-41); Mean Corp Hgb Conc 31.5 g/dL (32-36); Mean Corpuscular Hgb 34.4 pg (27.0-32.0); Mean Corpuscular Volume 109.3 fL (80-94); Mean Platelet Vol. 8.8 fl (6.2-12.0); Monocyte# 0.51 X10^3/uL; Monocyte% 6.9 % (0-10); NRBC Flagged by Analyzer 0 % (0-5); Neutrophil # 3.22 X10^3/uL (2.7-7.7); Neutrophil % 43.4 % (47-70); POSITIVE MORPHOLOGY YES; Platelet Count 629 K/mm3 (150-450); RBC Distribution Width CV 17.4 % (11.6-14.6); Red Blood Count 2.79 M/mm3 (4.6-6.2); White Blood Count 7.4 K/mm3 (4.4-11.0)
[2022-12-16 06:04] LABS: Differential Indicated SCAN CRITERIA MET
[2022-12-16 06:19] LABS: Anion Gap 3 (5-15); BUN 13 mg/dL (7-18); BUN/Creat Ratio 19.9 RATIO (10-20); Calcium,Total 8.8 mg/dL (8.5-10.1); Chloride 111 mmol/L (98-107); Creatinine, Serum 0.65 mg/dL (0.70-1.30); EST Glomerular Filtration Rate 123 mL/min (>60); Est Glom Filt Rate - Afr Amer 148 mL/min (>60); Estimated Creatinine Clearance 44.68 ml/min; Glucose 93 mg/dL (74-106); Potassium 4.3 mmol/L (3.5-5.1); Sodium Level 141 mmol/L (136-145)
[2022-12-16 06:36] LABS: Anisocytosis 2+; Differential Comment SCANNED; Hypochromasia 1+; Macrocytosis 2+
[2022-12-16] MEDS: Ciprofloxacin 250 MG Tablet PO (08:40)
[2022-12-16] MEDS: Iron Polysaccharide Complex 150 MG CAPSULE PO (08:40)
[2022-12-16] MEDS: Ascorbic Acid 500 MG Tablet PO (08:40)
[2022-12-16] MEDS: Cyanocobalamin 500 MCG Tablet 1000 MCG PO (08:40)
[2022-12-16] MEDS: APIXABAN 2.5 MG TABLET (WCH) PO (08:40)
[2022-12-16] MEDS: Cholecalciferol (VIT D3) 25 MCG TABLET (1,000 UNITS) PO (08:40)
[2022-12-16 08:41] VITALS: BP 115/52; PULSE 66
[2022-12-16] MEDS: Ensure Plus High Protein 120 ML LIQUID PO (08:41)
[2022-12-16] MEDS: Metoprolol Tartrate 25 MG Tablet PO (08:41)
[2022-12-16] MEDS: Menthol/Lanolin/Calamine/Znox 113 GM Tube 1 APPLIC TOPICAL (08:41)
[2022-12-16] MEDS: Nystatin Powder 15gm Bottle 1 APPLIC TOPICAL (08:41)
--- NOTE | 2022-12-16 10:42 | NURSING ---
This Nurse educated pt on importance of Mcgowan cath d/t pt being unable to void. Pt agreed. Mcgowan cath inserted using sterile technique and 600ml of clear yellow urine noted. F/u appt made with Dr. Amos.
[2022-12-16 12:27] VITALS: BP 149/69; PULSE 83; RESP 16; TEMP 36.2; O2SAT 96
--- NOTE | 2022-12-16 14:16 | CASEMGMT ---
Social [facility] and pt won his appeal. However, the gddtr elected to DC pt home earlier in the day without waiting for the outcome. EVANGELISTA LedesmaW
== END 2022-12-16 11:00 | disposition home health service (06) | DRG 560 ==
PROVIDERS: Admitting Provider Family Medicine Geriatric Medicine; PCP Family Medicine; Visit Provider Family Medicine Geriatric Medicine
DX: S72.002D Fracture of unspecified part of neck of left femur, subsequent encounter for closed fracture with routine healing (principal); I48.92 Unspecified atrial flutter; N39.0 Urinary tract infection, site not specified; E03.9 Hypothyroidism, unspecified; D50.9 Iron deficiency anemia, unspecified; I25.10 Atherosclerotic heart disease of native coronary artery without angina pectoris; B35.4 Tinea corporis; I12.9 Hypertensive chronic kidney disease with stage 1 through stage 4 chronic kidney disease, or unspecified chronic kidney disease; N18.1 Chronic kidney disease, stage 1; E53.8 Deficiency of other specified B group vitamins; E55.9 Vitamin D deficiency, unspecified; E78.00 Pure hypercholesterolemia, unspecified; W19.XXXD Unspecified fall, subsequent encounter; Z79.82 Long term (current) use of aspirin; Z87.891 Personal history of nicotine dependence; Z79.01 Long term (current) use of anticoagulants; Z79.899 Other long term (current) drug therapy; Z79.890 Hormone replacement therapy
CPT/HCPCS: 36415; 80048; 81001; 85014; 85018; 85025; 87077; 87086; 87088; 87186; 87811; 97110; 97116; 97162; 97166; 97530; 97535